=== PATIENT | female | born 1965 | race Caucasian/White ===

== ENCOUNTER → 2018-02-14 12:58 | Outpatient (CLI) | payer OTHER, SELFPAY ==
--- NOTE | 2018-02-14 | BRBX_PTH ---
PATIENT: PRESTON HALE LOC: [facility] U#:[id number] AGE/SX: 60/F ROOM: RE02/14/[address]: Dr. Tomás Nuñez MD : 1965 BED: DIS: SPEC #: [id number] RECD: 02/14/18 13:32 STATUS: ROME VICKY #: [id number] JONNATHAN: 02/14/18 00:[address]: Tomás Nuñez DEPT: SURGICAL PATHOLOGY RECD BY: Philip Hale Tissues: Left breast, NOS Procedures: Surgery Specimen Level IV HEADER OPERATION: Ultrasound-guided left breast biopsy PRE-OP DIAGNOSIS: Abnormal mammogram TISSUE SUBMITTED: Left breast biopsy ISCHEMIC TIME: 2 minutes MICROSCOPIC DIAGNOSIS Left breast, ultrasound-guided core biopsy: Hyalinized fibroadenoma. Negative for atypia or malignancy. SJ:lindy 02/15/18 COMMENT Correlation with clinical, radiologic findings and appropriate follow up are necessary. MICROSCOPIC DESCRIPTION Slides are reviewed. GROSS DESCRIPTION Received is one container labeled with the patient's name and not further designated. The specimen consists of multiple elongated fragments of banks-yellow fibroadipose tissue that in aggregate measure 2 x 0.5 x 0.1 cm. The entire specimen is submitted in one cassette. / SJ:lindy 02/14/18 TC:1 CPT: 26708
== END ==
PROVIDERS: Family Provider Family Medicine; PCP Family Medicine; Visit Provider Surgery
DX: R92.8 Other abnormal and inconclusive findings on diagnostic imaging of breast (principal)
CPT/HCPCS: 88305

== ENCOUNTER → 2018-08-09 14:01 | Outpatient (CLI) | payer OTHER, SELFPAY ==
--- NOTE | 2018-08-09 14:12 | RAD_ITS ---
STUDY: X-RAY - LEFT HIP REASON FOR EXAM: Female, 53 years old. Chronic left hip pain. TECHNIQUE: 3 views of the hip. COMPARISON: None. FINDINGS: There is generalized osteopenia. The frontal view of the pelvis shows osteoarthritic changes of both hips, left greater than right. There is near complete loss of articular cartilage of the superior articular space of the left hip with marked osteophyte formation and subchondral cyst formation. There is mild osteoarthrosis of the symphysis pubis and SI joints. There are phleboliths in the pelvis. RAD/HIP, UNI W/ Pelvis 2-3 Views IMPRESSION: Osteopenia with osteoarthritic changes, left greater than right, as outlined above. Electronically Signed: Riky Rondon MD at 16:39 EST , Service support ,
== END ==
PROVIDERS: Family Provider Family Medicine; PCP Family Medicine; Referring Provider Family Medicine; Visit Provider Family Medicine
DX: M85.88 Other specified disorders of bone density and structure, other site (principal); M16.0 Bilateral primary osteoarthritis of hip
CPT/HCPCS: 73502

== ENCOUNTER → 2018-09-03 09:54 | Outpatient (CLI) | payer OTHER, SELFPAY ==
--- NOTE | 2018-09-03 10:03 | BD_ITS ---
STUDY: DUAL ENERGY X-RAY ABSORPTIOMETRY / DXA REASON FOR EXAM: Female, 53 years old. The patient is postmenopausal. Loss of height. TECHNIQUE: Bone Mineral Density (BMD) measurements of lumbar spine and bilateral hips were obtained. COMPARISON: None. FINDINGS: Lumbar Spine (L1-L4): g/cm2 (1.690) / T-score (4.1) / Z-score (4.6) Findings are suggestive of normal bone density with a low fracture risk. Left Femur Total: g/cm2 (1.085) / T-score (0.7) / Z-score (1.1) Left Femoral Neck: g/cm2 (1.287) / T-score (1.8) / Z-score (2.6) Right Femur Total: g/cm2 (1.004) / T-score (0.0) / Z-score (0.5) Right Femoral Neck: g/cm2 (1.02) / T-score (-0.1) / Z-score (0.8) BD/Dexa Bone Density Study IMPRESSION: The patient is considered normal as outlined below according to World [place] Organization (WHO) criteria with a low fracture risk. Reference Information: The T-score is the number of standard deviations above or below the standard which is normal for young adults at their peak bone mineral density. The World Health Organization (WHO) interprets the T-scores as follows: Above -1 Normal bone density Between -1 and -2.5 Osteopenia Equal to / or below -2.5 Osteoporosis As a practical clinical guideline, osteopenia may be graded as follows: Mild -1 through -1.5 Moderate -1.6 through -2.0 Severe -2.1 through -2.4 The Z-score is the number of standard deviations above or below age-matched controls. A Z-score of less than -1.5 would be considered abnormal. References: 1. NIH Osteoporosis and Related Bone Diseases http://www.osteo.org 2. International Society for Clinical Densitometry http://www.iscd.org 3. National Osteoporosis Foundation http://www.nof.org Electronically Signed: Reggie Spicer MD at 15:30 EST Tel [phone], Service support ,
== END ==
PROVIDERS: Family Provider Family Medicine; PCP Family Medicine; Visit Provider Family Medicine
DX: M85.80 Other specified disorders of bone density and structure, unspecified site (principal); Z78.0 Asymptomatic menopausal state
CPT/HCPCS: 77080

== ENCOUNTER → 2018-09-19 06:24 | Outpatient (CLI) | payer OTHER, SELFPAY ==
[2018-09-19 09:06] LABS: ALB/GLOB Ratio 1.1 RATIO (0.9-2.4); Albumin, Serum 3.8 g/dL (3.2-5.0); BUN 18 mg/dL (7-18); BUN/Creat Ratio 22.9 RATIO (10-20); Calcium,Total 8.7 mg/dL (8.5-10.1); Creatinine, Serum 0.78 mg/dL (0.55-1.02); EST Glomerular Filtration Rate 82 mL/min (>60); Est Glom Filt Rate - Afr Amer 99 mL/min (>60); Globulin 3.4 g/dL (2.2-4.2); Glucose 84 mg/dL (74-106); Protein, Total 7.2 g/dL (6.4-8.2)
[2018-09-19 09:07] LABS: AST(SGOT) 27 U/L (15-37); Alanine Aminotransfer ALT/SGPT 30 U/L (13-56); Alkaline Phosphatase 53 U/L (45-117); Anion Gap 7 (5-15); Chloride 107 mmol/L (98-107); Cholesterol 203 mg/dL (200); High Density Lipoprotein 86 mg/dL; Sodium Level 141 mmol/L (136-145); Triglycerides 101 mg/dL; Very Low Density Lipoprotein 20 mg/dL (5-40)
== END ==
PROVIDERS: Family Provider Family Medicine; PCP Family Medicine; Referring Provider Family Medicine; Visit Provider Family Medicine
DX: Z00.01 Encounter for general adult medical examination with abnormal findings (principal)
CPT/HCPCS: 36415; 80053; 80061

== ENCOUNTER → 2018-10-11 16:21 | Outpatient (CLI) | payer OTHER, SELFPAY ==
--- NOTE | 2018-10-11 16:43 | RAD_ITS ---
STUDY: X-RAY - LEFT KNEE REASON FOR EXAM: Female, 53 years old. Left knee pain TECHNIQUE: 4 view(s) of the knee. COMPARISON: None. FINDINGS: Normal visualized distal femur. Normal visualized proximal tibia and fibula. Normal proximal tibiofibular articulation. Normal medial femorotibial compartment. Normal lateral femorotibial compartment. Normal patellofemoral articulation. There is no demonstrated joint effusion. The soft tissue structures are unremarkable. RAD/Knee 4 or More Views IMPRESSION: 1. Normal x-ray examination of the knee. Electronically Signed: Douglas Shabazz MD at 17:27 EST , Service support ,
--- OUTSIDE RECORDS SUMMARY | 2018-12-16 07:57 | XMS RPT_ITS ---
:1965 Author Organization OHIP Care Team Providers Name Role Phone TOMÁS SMITH Referring Unavailable TOMÁS SMITH Referring Unavailable TOMÁS SMITH Attending Unavailable RYLIE MICHEL Referring Unavailable TOMÁS SMITH Referring Unavailable Miedel, Teresa Attending Unavailable Miedel, Teresa Primary Care Unavailable Char Antonio Attending Unavailable Miedel, Teresa Referring Unavailable Char Antonio Attending Unavailable Miedel, Teresa Primary Care Unavailable Miedel, Teresa Attending Unavailable Miedel, Teresa Referring Unavailable Miedel, Teresa Primary Care Unavailable Miedel, Teresa Attending Unavailable Miedel, Teresa Referring Unavailable Miedel, Teresa Primary Care Unavailable Markel, Teresa Attending Unavailable Miedel, Teresa Referring Unavailable Miedel, Teresa Primary Care Unavailable Tomás Smith Attending Unavailable Joaquin, Tomás Referring Unavailable Leilani Lantigua Primary Care Unavailable Teresa Stephens Attending Unavailable Kat Teresa Referring Unavailable Kat Teresa Primary Care Unavailable PROBLEMS PROBLEMS DATE TYPE CONDITION / CODE ATTENDING STATUS SOURCE 10/18/2018 Unknown 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, Active [place] Unilateral primary [facility] osteoarthritis, Hospital left hip / Repository M16.12(ICD-10) 10/18/2018 Unknown M70.62 - Chicorelli, Active [place] Trochanteric [facility] bursitis, left hip Hospital / M70.62(ICD-10) Repository 10/18/2018 Unknown M76.32 - Chicorelli, Active [place] Iliotibial band [facility] syndrome, left leg Hospital / M76.32(ICD-10) Repository 10/11/2018 Unknown M25.562 - Pain in Teresa Stephens Active [place] left knee / Community M25.562(ICD-10) Hospital Repository 09/19/2018 Unknown Z00.01 - Encounter Teresa Stephens Active [place] for general [facility] examination with Repository abnormal findings / Z00.01(ICD-10) 04/30/2018 Unknown R92.8 - Other [place] abnormal and [facility] inconclusive Hospital findings on Repository diagnostic imaging of breast / R92.8(ICD-10) 01/30/2018 Active Other abnormal and NA Active [facility] inconclusive [facility] [place] findings on Repository diagnostic imaging of breast / R92.8(ICD-10) PROCEDURES PROCEDURES No Procedure Records FoundRESULTS RESULTS PROGRESS Observed: 10/16/2018 Status: COMPLETED Source: [place] 8:28 AM [facility] REPOSITORY HNO ID: [id number] Author: Erendira Pimentel Rt Service: (none) Author Type: (none) Type: Progress Notes Filed: 10/16/2018 8:28 AM Note Text: Radiology Service Progress Note PATIENT NAME: Maria Hale DATE OF SERVICE: October 16, 2018 TIME: 8:28 AM PATIENT IDENTITY VERIFICATION COMPLETED USING TWO (2) METHODS: Patient confirmed name verbally and Date of . PATIENT GENDER DATA: Female. status: : No status: NO. PATIENT RELEVANT IMPLANT DATA REVIEWED: Not Applicable RADIOLOGY DEPARTMENT: [facility] diagnostic mammogram PERIPHERAL IV DATA: Not applicable SIGNED BY: Erendira Pimentel Rt October 16, 2018 8:28 AM CNCO Observed: 10/16/2018 Status: COMPLETED Source: [place] 8:21 AM [facility] REPOSITORY HNO ID: [id number] Author: Mammography Coordinator Service: (none) Author Type: Physician Type: Letter Filed: 10/17/2018 11:31 PM Note Text: October 16, 2018 PID: [id number] Maria Echavarriaward [address] [address] Dear Ms. Hale, We are pleased to inform you that the results of your recent breast imaging exam on 10/16/2018 are normal and we recommend that you return to your annual screening Mammography schedule. Your mammogram demonstrates that you have dense breast tissue, which could hide abnormalities. Dense breast tissue, in and of itself, is a relatively common condition. Therefore, this information is not provided to cause undue concern; rather, it is to raise your awareness and promote discussion with your health care provider regarding the presence of dense breast tissue in addition to other risk factors. Early detection of cancer is very important. We also understand recommendations regarding breast cancer screening are controversial. Please discuss with your primary care provider which strategy is best for you and whether a mammogram is right for you. Your imaging studies and report will be kept on file at [facility] as part of your permanent medical record and are available for your continuing care. Thank you for allowing us to help in meeting your health care needs. Sincerely, Dr. Beltre Interpreting Radiologist [facility] (Return to Annual Mammogram schedule) [facility]IC [facility] Observed: 10/16/2018 Status: F Source: [place] 8:15 AM [facility] REPOSITORY * * *Final Report* * * DATE OF EXAM: Oct 16 2018 8:15AM WRW [id number] - [facility] DIAG[facility]IC [facility] / PROCEDURE REASON: Abnormal finding on breast imaging * * * * Physician Interpretation * * * * RESULT: #[id number] - [facility] DIAG[facility]IC [facility] UNILATERAL LEFT DIGITAL DIAGNOSTIC MAMMOGRAM WITH CAD: 10/16/2018 HISTORY: Abnormal Finding On Breast Imaging. RESULT: TECHNIQUE: The study was acquired using full field digital technology and interpreted from soft copy. Current study was also evaluated with a Computer Aided Detection (CAD). Comparison is made to exams dated: 01/30/2018 mammogram, 02/28/2017 mammogram, 08/29/2016 mammogram - [facility], and 08/22/2016 mammogram - [facility]. The tissue of left breast is heterogeneously dense. This may lower the sensitivity of mammography. There is a new biopsy clip in the left breast. No significant masses, calcifications, or other findings are seen in the breast. IMPRESSION: There is no mammographic evidence of malignancy. Return to annual mammogram screening schedule is recommended. Meg wilson/alena:10/16/2018 08:21:43 Fund Controller(s): RT Shahana(R)(M), [facility] letter sent: Return to Annual Mammogram BI-RADS: 1 Negative Multiple national specialty organizations have released breast cancer screening guidelines for women at average risk for developing breast cancer - guidelines that are based on both evidence and opinion, yet differ on when to start and how often to screen for breast cancer. With representation from Breast Imaging, Internal Medicine, Women's Health, Family Medicine, and Medical/Surgical Oncology, the [facility] has carefully reviewed the data and reached the following consensus: 1) All women should engage in shared decision-making with their providers to decide when to start and how often to screen; 2) All women should have the opportunity to start screening mammography at age 40; 3) For women ages 45-55, we recommend annual screening mammograms; 4) For women ages 55 and over, we support both the transition from an annual to a biennial interval if this aligns more with patient's values and preferences, or continuation with annual screening; 5) All women should discuss with their providers when to stop screening mammograms. Lead Sharepoint Developer: Alena Transcribe Date/Time: Oct 16 2018 8:02A Dictated by: MEG BELTRE MD This examination was interpreted and the report reviewed and electronically signed by: MEG BELTER MD on Oct 16 2018 8:21AM EST [id number] KNEE 4 OR MORE Observed: 10/11/2018 Status: F Source: [place] VIEWS 4:43 PM [facility] REPOSITORY [facility] Imaging Services [address] [place] [id number] Knee 4 or More Views MR#: [id number] Acct: [id number] Name: MARIA HALE Rep #: [id number] : 1965 F 53 From: Douglas Shabazz MD PCP: Teresa Stephens MD Status: REG CLI Study: Knee 4 or More Views Date of Exam: 10/11/18 Exam# [id number] Ordering Dr: Teresa Stephens MD STUDY: X-RAY - LEFT KNEE REASON FOR EXAM: Female, 53 years old. Left knee pain TECHNIQUE: 4 view(s) of the knee. COMPARISON: None. FINDINGS: Normal visualized distal femur. Normal visualized proximal tibia and fibula. Normal proximal tibiofibular articulation. Normal medial femorotibial compartment. Normal lateral femorotibial compartment. Normal patellofemoral articulation. There is no demonstrated joint effusion. The soft tissue structures are unremarkable. RAD/Knee 4 or More Views IMPRESSION: 1. Normal x-ray examination of the knee. Electronically Signed: Douglas Shabazz MD at 17:27 EST , Service support , CC: Teresa Stephens MD Lead Sharepoint Developer: Signed INITAL EVALUATION (1) Observed: 09/26/2018 Status: F Source: [place] - PT 6:50 PM [facility] REPOSITORY [facility] Physical Therapy Health[address] [place] [address] / REHABILITATION SERVICES INITIAL EVALUATION MR#: [id number] Acct: [id number] Name: MARIA HALE Rep #: [id number] : 1965 53 From: Eric Tilley PT, ATC Referring Dr.: Char Chicorelli, DO Status: REG RCR [facility] S[facility] [facility] Patient's Visit Information MARIA HALE is a 53 year old F referred to Physical Therapy by Char Antonio DO with a diagnosis of L hip pain. Date of Evaluation: 09/26/18 Physical Therapist: Eric Tilley PT, ATC - Visit Plan Frequency: 2x /Week Duration: 2 Weeks Plan: L LE stretching and strengthening, core stab ex's, bike, and HEP - Subjective Findings: Pt reports her L hip has been sore for 6 mos. Pt reports her pain had an insidious onset in nature, but notes she did fall 20 years ago and notes this may have had something to do with it. Pt reports she has always been a runner, so her knees are shot as well. Pt reports she is not able to run at this time secondary to pain. Pt would like to be able to go back to running one day to help relieve her stress. No tingling or numbness in L LE at this time. Pt reports sleep difficulty secondary to pain. Pt reports she feels more pain when she sits around and does nothing. 2/10 at rest (a dull ache), 8/10 at worst (stops my in my tracks) - Pain L hip Pain Intensity (Out of 10): 2 Pain Intensity Range: 8 - Objective Neuro: B LE sensation is WNL to light touch. B patellar reflex= 2+/3. Palpation: No pain or obvious deformity around greater trochanter of L hip. MMT: L hip IR/ER is 4/5. All other B LE measurements 5/5 throughout. ROM: B LE's are WNL at this time. Special testing: Pt has a 1/4 leg length discrepancy with L being shorter than R LE. Pos 90/90 test. limited flexibility throughout - Goals Goal 1:: I with HEP in 4 visits - Rehabilitation Potential Physical Therapy Diagnosis: L hip pain, weakness, and limited flexibility secondary to debility of L hip Rehabilitation Potential: Good - Anticipated Interventions Patient/Client Instruction: Educate patient on: Condition, Plan of Care For the Purpose of:: To improve self management Therapeutic Exercise to Include: Strength training, Endurance training, Balance training, Flexibilty training, Active ROM, Dynamic Lumbar Stabilization For the Purpose of:: To decrease pain, To increase ROM, To improve muscle performance and motor function Cryotherapy (ice pack, ice massage): Yes For the Purpose of:: To decrease pain Thank you for the opportunity to evaluate your patient. For Medicare and Medicare HMO plans, please review the plan of care and approve it. It will need to be FAXED BACK to us at [phone] for Medicare purposes. For Medicare only, by signing this I certify the plan of care. Please let me know if there are questions or concerns regarding this plan of care. Physician Signature: Date: <Electronically signed by Eric Tilley PT, ATC> 09/26/18 1850 CC: Char Antonio DO; Teresa Stephens MD [facility] Signed COMPREHENSIVE METABOLIC Collected: 09/19/2018 Status: F Source: [place]ACI[place]A [place] 6:28 AM [facility] REPOSITORY TYPE CODE TESTS RESULT OUT OF RANGE REFERENCE UNITS LAB L501.0100 74-106 mg/dL Normal GLU 84 Result Comment: Please note revised GLUCOSE reference range effective 2017. LAB L501.1000 7-18 mg/dL Normal BUN 18 LAB L501.1100 0.55-1.02 mg/dL Normal CREAT,SERUM 0.78 Result Comment: The validity of the calculated GFR AND GFRAA in patients over 70 years has not been determined. Clinical correlation is essential. LAB L501.1110 >60 mL/min Normal EST GFR 82 Result Comment: Non- GFR Calc LAB L501.1115 >60 mL/min Normal EST GFR - AA 99 Result Comment: GFR Calc LAB L501.1300 10-20 RATIO High BUN/CRE 22.9 LAB L501.1500 6.4-8.2 g/dL T Normal PROT 7.2 LAB L501.1800 3.2-5.0 g/dL Normal ALB 3.8 LAB L501.1950 2.2-4.2 g/dL Normal GLOB 3.4 LAB L501.2000 0.9-2.4 RATIO Normal A/G 1.1 LAB L501.2200 8.5-10.1 mg/dL CA Normal 8.7 LAB L501.4100 15-37 U/L Normal AST 27 LAB L501.4305 45-117 U/L Normal ALK P 53 LAB L501.4405 13-56 U/L Normal ALT 30 LAB L501.4600 0.20-1.00 mg/dL T Normal BILI 0.40 LAB L501.5300 136-145 mmol/L NA Normal 141 LAB L501.5600 3.5-5.1 mmol/L K Normal 4.0 LAB L501.5900 98-107 mmol/L CL Normal 107 LAB L501.6100 21.0-32.0 mmol/L Normal CO2 27.0 LAB L501.6200 5-15 Normal GAP 7 Performed By: #### L500.4050, L500.4100 #### [facility] [address] [place], [place], [id number] LIPID PROFILE Collected: 09/19/2018 Status: F Source: [place] 6:28 AM [facility] REPOSITORY TYPE CODE TESTS RESULT OUT OF RANGE REFERENCE UNITS LAB L501.4900 200 mg/dL High CHOL 203 Result Comment: <200 mg/dL Desirable 200-240 mg/dL Borderline >240 mg/dL High Risk LAB L501.5000 mg/dL Normal TRIG 101 Result Comment: The drugs N-Acetylcysteine and Metamizole may falsely depress this assay. Serum Triglycerides Reference Interval Normal <150 mg/dL Borderline high 150 - 199 mg/dL High 200 - 499 mg/dL Very High > or = 500 mg/dL LAB L501.6400 mg/dL Normal HDL 86 Result Comment: The drugs N-Acetylcysteine and Metamizole may falsely depress this assay. Reference Range HDL <40 mg/dL Low HDL Cholesterol HDL >or= 60 mg/dL High HDL Cholesterol LAB L501.6500 0-130 mg/dL Normal LDL 97 LAB L501.6600 5-40 mg/dL Normal VLDL 20 Performed By: #### L500.4050, L500.4100 #### [facility] [address] [place], [place], [id number] ORTHOPEDIC VISIT Observed: 09/12/2018 Status: F Source: [place] RE[place] 3:18 PM [facility] REPOSITORY [facility] [address] [place] [address] OFFICE VISIT Date of Service: 09/12/18 MR#: [id number] Acct: [id number] Name: MARIA HALE Rep #: [id number] : 1965 Provider: Char Antonio DO Age/Sex: 53/F Location[place] [facility] [place] [place] Status: Signed Intake Intake Visit Reasons: LEFT HIP Is patient in pain?: Yes Allergies No Known Allergies Allergy (Unverified 09/12/18 14:37) Medications cetirizine 10 mg capsule 10 mg PO DAILY 09/12/18 [History Confirmed 09/12/18] multivitamin tablet 1 tab PO DAILY 09/12/18 [History Confirmed 09/12/18] triamcinolone acetonide 55 mcg nasal spray aerosol 1 spray INTRANASAL DAILY 09/12/18 [History Confirmed 09/12/18] PFSH Family History Mother Diabetes Hypertension Father Cancer Social History Smoking Status: Former smoker HPI LEFT HIP: Details: MARIA HALE is a 53 year old F here today for left hip pain. Patient states that she has had left hip pain for about a year off and on. Patient denies any known injury other than a fall about 24 years ago. She has pain over her lateral hip and down her lateral thigh. Patient has increased pain with exercising. She notes that she had xrays which are here for review. Patient denies any MRI or injections or physical therapy. Denies numbness, tingling or other associated symptoms. ROS Const Reports system reviewed and no additional complaints, except as docu Eyes Reports system reviewed and no additional complaints, except as docu ENT Reports system reviewed and no additional complaints, except as docu Card Reports system reviewed and no additional complaints, except as docu Resp Reports system reviewed and no additional complaints, except as docu GI Reports system reviewed and no additional complaints, except as docu Reports system reviewed and no additional complaints, except as docu Musc Reports joint pain Skin/Breast Reports system reviewed and no additional complaints, except as docu Neuro Yes system reviewed and no additional complaints, except as docu Psych Reports system reviewed and no additional complaints, except as docu Endo Reports system reviewed and no additional complaints, except as docu Ortho Exam Left Hip Skin/Wound: Yes CDI Contralateral Normal: Yes Hip: Present TTP Greater Troch internal rotation @90 degree flexion: 20 degrees Homans Sign: No Assessment AND Plan 1. Osteoarthritis of left hip, unspecified osteoarthritis type M16.12 Plan Personally reviewed the patient's medical history, medications, surgeries and recent exams if available. X-rays were reviewed. There is no obvious fracture, dislocation, or lucency noted, she does have OA with osteophytes noted. Educated on the anatomy of the hip and explained that she has moderate to severe OA with goatsbeard noted as well as shortening. 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 Discussed referral to Dr Myers. Reviewed the need to try some strengthening, have PT do leg length and eval for orthotic. Follow up with Dr Myers when needed or sooner if pain, swelling, numbness or associated symptoms, or concerns develop. All questions answered. Patient in agreement of plan. 2. Greater trochanteric bursitis of left hip M70.62 3. Iliotibial band syndrome, left leg M76.32 Coding Level of Care Code Off vis,new,level 3 Diagnoses Osteoarthritis of left hip, unspecified osteoarthritis type M16.12 Osteoarthritis type: unspecified Greater trochanteric bursitis of left hip M70.62 Iliotibial band syndrome, left leg M76.32 09/12/18 1518 <Electronically signed by Char Antonio DO> Date Char Antonio DO Cosigner Signature: Date (if applicable) CC: Teresa Stephens MD DEXA BONE DENSITY Observed: 09/03/2018 Status: F Source: [place]CI[place] STUDY 9:57 AM [facility] REPOSITORY [facility] Imaging Services [address] [place] [address] Dexa Bone Density Study MR#: [id number] Acct: [id number] Name: MARIA HALE Rep #: [id number] : 1965 F 53 From: Reggie Spicer MD PCP: Teresa Stephens MD Status: REG CLI Study: Dexa Bone Density Study Date of Exam: 09/03/18 Exam# [id number] Ordering Dr: Teresa Stephens MD STUDY: DUAL ENERGY X-RAY ABSORPTIOMETRY / DXA REASON FOR EXAM: Female, 53 years old. The patient is postmenopausal. Loss of height. TECHNIQUE: Bone Mineral Density (BMD) measurements of lumbar spine and bilateral hips were obtained. COMPARISON: None. FINDINGS: Lumbar Spine (L1-L4): g/cm2 (1.690) / T-score (4.1) / Z-score (4.6) Findings are suggestive of normal bone density with a low fracture risk. Left Femur Total: g/cm2 (1.085) / T-score (0.7) / Z-score (1.1) Left Femoral Neck: g/cm2 (1.287) / T-score (1.8) / Z- score (2.6) Right Femur Total: g/cm2 (1.004) / T-score (0.0) / Z- score (0.5) Right Femoral Neck: g/cm2 (1.02) / T-score (-0.1) / Z- score (0.8) BD/Dexa Bone Density Study IMPRESSION: The patient is considered normal as outlined below according to World Jayedn Organization (WHO) criteria with a low fracture risk. Reference Information: The T-score is the number of standard deviations above or below the standard which is normal for young adults at their peak bone mineral density. The World Health Organization (WHO) interprets the T-scores as follows: Above -1 Normal bone density Between -1 and -2.5 Osteopenia Equal to / or below -2.5 Osteoporosis As a practical clinical guideline, osteopenia may be graded as follows: Mild -1 through -1.5 Moderate -1.6 through -2.0 Severe -2.1 through -2.4 The Z-score is the number of standard deviations above or below age-matched controls. A Z-score of less than -1.5 would be considered abnormal. References: 1. NIH Osteoporosis and Related Bone Diseases http://www.osteo.org 2. International Society for Clinical Densitometry http://www.iscd.org 3. National Osteoporosis Foundation http://www.nof.org Electronically Signed: Reggie Spicer MD at 15:30 EST Tel [phone], Service support , CC: Teresa Stephens MD Lead Sharepoint Developer: Signed CNPN Observed: 09/03/2018 Status: COMPLETED Source: [place] 12:00 AM [facility] REPOSITORY Telephone (GENSWS) MARIA HALE ([id number]) 1965 F Date Time Provider Department 09/03/18 TOMÁS SMITHSWS During your visit today, we recorded the following information about you: Johanna Ang Psr 09/03/2018 9:[address] orders so we may schedule 6 month DX mammography/Ultrasound Left Breast and OV with DR Smith. Please route back to [place] so we may return call to schedule. Colton Jennings LPN 09/03/2018 10:15 AM Signed orders pended- please file-Please do not close encounter Allergies As of Date: 09/03/2018 (No Known Allergies) Date Reviewed: 02/17/2018 Reviewed by: Tomás Smith - Fully Assessed Reason for Visit: Orders [681] Primary Visit Diagnosis:Abnormal finding on breast imaging [R92.8] Order(s):[facility] [[id number]] Order #: [id number] FUTURE BREAST LTD LT [[id number]] Order #: [id number] FUTURE Prescriptions as of 09/03/2018 Sig: CETIRIZINE 10 MG TABLET Take 1 tablet by mouth once d* FLUTICASONE 50 MCG/ACTUATION * Use 2 Sprays in each nostril * MULTIVITAMIN CHEWABLE TABLET Take 1 tablet by mouth once d* PSEUDOEPHEDRINE 60 MG TABLET Take 1 tablet by mouth every * Problem List As Of Date 09/03/2018 Noted Resolved Lump or mass in breast [N63.0] INVALID FOR* Abnormal mammogram, unspecified [R92.8] INVALID FOR* Benign essential HTN [I10] INVALID FOR* More... Tinnitus [H93.19] INVALID FOR* Encounter Status:Closed by TOMÁS SMITH MD on 09/03/18 HIP, UNI W/ PELVIS Observed: 08/09/2018 Status: F Source: [place] 2-3 VIEWS 2:13 PM [facility] REPOSITORY [facility] Imaging Services [address] [place] [address] HIP, UNI W/ Pelvis 2-3 Views MR#: [id number] Acct: [id number] Name: MARIA HALE Rep #: [id number] : 1965 F 53 From: Luisito Rondon MD PCP: Teresa Stephens MD Status: REG CLI Study: HIP, UNI W/ Pelvis 2-3 Views Date of Exam: 08/09/18 Exam# [id number] Ordering Dr: Teresa Stephens MD STUDY: X-RAY - LEFT HIP REASON FOR EXAM: Female, 53 years old. Chronic left hip pain. TECHNIQUE: 3 views of the hip. COMPARISON: None. FINDINGS: There is generalized osteopenia. The frontal view of the pelvis shows osteoarthritic changes of both hips, left greater than right. There is near complete loss of articular cartilage of the superior articular space of the left hip with marked osteophyte formation and subchondral cyst formation. There is mild osteoarthrosis of the symphysis pubis and SI joints. There are phleboliths in the pelvis. RAD/HIP, UNI W/ Pelvis 2-3 Views IMPRESSION: Osteopenia with osteoarthritic changes, left greater than right, as outlined above. Electronically Signed: Luisito Rondon MD at 16:39 EST , Service support , CC: Teresa Stephens MD Lead Sharepoint Developer: Signed CNCO Observed: 03/13/2018 Status: COMPLETED Source: [place] 10:44 AM [facility] REPOSITORY HNO ID: [id number] Author: Mammography Coordinator Service: (none) Author Type: Physician Type: Letter Filed: 03/18/2018 11:31 PM Note Text: January 30, 2018 PID: [id number] Maria Hale [address] [place] [address] Dear Ms. Hale, Your recent breast imaging exam on 01/30/2018 showed an abnormal area. At this time we recommend further evaluation. This does not necessarily mean that there is a serious problem in your breast, but it should not be ignored. Please contact your physician as soon as possible to discuss the results of this exam and decide what the next steps in your medical care should be. If you have already been notified of these findings, please disregard this letter. Thank you for allowing us to help in meeting your health care needs. Sincerely, Dr. Beltre Interpreting Radiologist [facility] (Abnormal) CNCO Observed: 03/13/2018 Status: COMPLETED Source: [place] 10:44 AM [facility] REPOSITORY HNO ID: [id number] Author: Mammography Coordinator Service: (none) Author Type: Physician Type: Letter Filed: 03/18/2018 11:31 PM Note Text: January 30, 2018 PID: [id number] Maria Hale [address] [place] [address] Dear Ms. Hale, Your recent breast imaging exam on 01/30/2018 showed an abnormal area. At this time we recommend further evaluation. This does not necessarily mean that there is a serious problem in your breast, but it should not be ignored. Please contact your physician as soon as possible to discuss the results of this exam and decide what the next steps in your medical care should be. If you have already been notified of these findings, please disregard this letter. Thank you for allowing us to help in meeting your health care needs. Sincerely, Dr. Beltre Interpreting Radiologist [facility] (Abnormal) PROGRESS Observed: 02/17/2018 Status: COMPLETED Source: [place] 11:53 PM [facility] REPOSITORY O ID: [id number] Author: Tomás Smith Service: (none) Author Type: Physician Type: Progress Notes Filed: 02/18/2018 9:48 AM Note Text: HISTORY AND PHYSICAL - BREAST COMPLAINT Maria Hale 1965 REFERRING PHYSICIAN: Rylie Michel MD CHIEF COMPLAINT: Persistent left breast abnormality HPI: The patient is a 53 year old female with a complaint of an abnormal mammogram. The patient had a mammogram with ultrasound on January 30, 2018 which demonstrated: IMPRESSION: SUSPICIOUS FINDING - BIOPSY SHOULD BE CONSIDERED - FOLLOW-UP RECOMMENDED The 0.7 cm x 0.4 cm x 0.7 cm oval mass in the right breast is suspicious of malignancy. ?An ultrasound guided biopsy is recommended. The patient denies a history of breast masses. She does perform a self breast exam routinely. She notes no skin changes. She denies nipple discharge. She notes no axillary masses. She notes no family history of breast problems. She notes no significant breast trauma or breast difficulties in the past. The patient had a mammogram with ultrasound on February 28, 2017 which demonstrated: ? IMPRESSION: SUSPICIOUS OF MALIGNANCY - FOLLOW-UP RECOMMENDED The 0.7 cm x 0.4 cm x 0.6 cm oval mass in the left breast is suspicious of malignancy. ?An ultrasound guided biopsy is recommended. Meg wilson/alena:02/28/2017 16:10:23 copy to: BARNEY SALDANA, ph: [phone] Fund Controller: Paula CASSIDY(R)(M), [facility] letter sent: Abnormal ? Mammogram BI-RADS: 4 Suspicious abnormality Ultrasound BI-RADS: 4 Suspicious abnormality Lead Sharepoint Developer: Alena Transcribe Date/Time: Feb ?3:45P Dictated by : MEG BELTRE MD This examination was interpreted and the report reviewed and electronically signed by: MEG BELTRE MD on Feb ?4:10PM ?EST Results-Findings * * *Final Report* * * DATE OF EXAM: Feb ?3:59PM ? [facility] ? 0155 ?- ?US BREAST INCL AXILLA LTD ?- LEFT / PROCEDURE REASON: 6 month followup left breast abnormal mamogram ?? ? * * * * Physician Interpretation * * * * ?#[id number] - SARA DIG DIAG CAD UNI UNILATERAL LEFT DIGITAL DIAGNOSTIC MAMMOGRAM WITH CAD: 02/28/2017 HISTORY: 6 Month Followup Left Breast ? ? Abnormal Mamogram. RESULT: TECHNIQUE: ?The study was acquired using full field digital technology and interpreted from soft copy. Current study was also evaluated with a Computer Aided Detection (CAD). Comparison is made to exams dated: ?08/29/2016 mammogram - [facility] and 08/22/2016 mammogram - [facility]. The tissue of the left breast is heterogeneously dense. This may lower the sensitivity of mammography. There is no mammographically visible abnormality. Biopsy based on the ultrasound is advised. No significant masses, calcifications, or other findings are seen in the breast. SUSPICIOUS OF MALIGNANCY #[id number] - US BREAST INCL AXILLA LTD ULTRASOUND OF LEFT BREAST: 02/28/2017 RESULT: Comparison is made to exams dated: ?08/29/2016 mammogram - [facility] and 08/22/2016 mammogram - [facility]. Real-time ultrasound of the left breast was performed. There is a 0.7 cm x 0.4 cm x 0.6 cm oval mass with a circumscribed margin in the left breast at 9 o'clock middle depth 1 cm from the nipple. ?This oval mass is hypoechoic with internal echoes. ?This abnormality is not significantly changed. ? ? ? . The patient denies a history of breast masses. She does perform a self breast exam routinely. She notes no skin changes. She denies nipple discharge. She notes no axillary masses. She notes no family history of breast problems. She notes no significant breast trauma or breast difficulties in the past. ? The patient has had 3 pregnancies. Her last mammogram was 1 year previously. Her last menstrual period was November 2016. Her first menstrual period was at age [age]. ? The patient is being seen by me today at the request of Dr. RYLIE MICHEL MD for my opinion and advice regarding left breast abnormality. PAST MEDICAL HISTORY Diagnosis Date - NEGATIVE MEDICAL HISTORY PAST SURGICAL HISTORY Procedure Laterality Date - LIGATE FALLOPIAN TUBE 2003 Tubal ligation Current Outpatient Prescriptions: pseudoephedrine (SUDAFED) 60 mg tablet Take 1 tablet by mouth every 6 hours as needed for Cold/Allergy Symptoms. Disp: 30 tablet Rfl: 2 cetirizine (ALL DAY ALLERGY) 10 mg tablet Take 1 tablet by mouth once daily. Disp: 30 tablet Rfl: 5 fluticasone (FLONASE) 50 mcg/actuation nasal spray Use 2 Sprays in each nostril once daily. Rinse mouth after use. Disp: 1 Bottle Rfl: 11 Multivitamins (CHEWABLE MULTI VITAMIN) Chew Take 1 tablet by mouth once daily. CHEW TAB BEFORE SWALLOWING Disp: Rfl: 0 No current facility-administered medications for this visit. ALLERGIES: Patient has no known allergies. PERSONAL HISTORY: Social History Marital status: Spouse name: Years of education: Number of children: 3 Occupational History Occupation Employer Comment [employer] Social History Main Topics Smoking status: Former Smoker Packs/day: 0.00 Years: 0.00 Smokeless tobacco: Never Used Alcohol use: Yes Comment: rarely Drug use: No Sexual activity: Yes Partners with: Male control/protection: Tubal Ligation FAMILY HISTORY: FAMILY HISTORY Problem Relation Age of Onset - Diabetes Mother - Cancer Father lung - Stroke Father REVIEW OF SYMPTOMS: The review of systems data was entered by the nurse and reviewed by me Nursing Notes: Jacquelyn Araya LPN 02/14/2018 9:04 AM Signed INFORMED CONSENT Maria Hale Medical Record: [id number] Procedure:us guided left breast biopsy The risks, benefits and anticipated outcomes of the procedure, the risks and benefits of the alternatives to the procedure and the roles and tasks of the personnel to be involved were discussed with the patient and the patient consents to the procedure and agrees to proceed. I verify that I personally obtained Maria Hale's consent. Jacquelyn Araya LPN February 14, 2018 8:59 AM Dept of GENERAL SURGERY UNIVERSAL PROTOCOL / SAFETY CHECKLIST Procedure to be performed: us guided left breast biopsy Sign in Communication: Completed Time Out: Team Confirms the Correct Patient, Correct Procedure, Correct Site and Site Marking, Correct Position (if applicable), Prep and Dry Time (if applicable). Time: 859 am Affirmation of Time Out: YES Sign Out Discussion: Completed Jacquelyn Araya LPN PHYSICAL EXAMINATION: General: The patient is 53 year old female, well nourished, well hydrated in no acute distress. The patient is oriented to time, place, and person. VITALS: Blood pressure 148/82, pulse 68. There is no height or weight on file to calculate BMI. HEENT: Normal cephalic, ataumatic, pupils are equally round, sclera are anicteric, mucous membranes are moist, oropharynx is clear. Neck has no masses, asymmetry or lymphadenopathy. Thyroid is unremarkable. Respiratory: Clear to auscultation and percussion. Normal respiratory excursion and pattern. Cardiac: Examination is regular rate and rhythm. Abdominal exam: Soft, nontender, with no palpable masses. No hepatosplenomegaly. No palpable hernias. Rectal exam: exam deferred Extremities: no clubbing, cyanosis or edema. No adenopathy. Breast: Visual inspection reveals no retractions, nipple inversion, or skin changes. Palpation of the right breast reveals no dominant or suspicious masses, but multiple benign-feeling nodules. Palpation of the left breast reveals no dominant or suspicious masses, but multiple benign-feeling nodules. Axillary exam demonstrates no suspicious masses in either the left or right axilla. There is no nipple discharge expressed from either the left or right breast. LABORATORY VALUES: As Noted RADIOLOGIC STUDIES: As Noted PROCEDURE: Ultrasound Guided Core Breast Biopsy The risks, benefits and anticipated outcomes of the procedure, the risks and benefits of the alternatives to the procedure, and the roles and tasks of the personnel to be involved, were discussed with the patient, and the patient consents to the procedure and agrees to proceed. After explaining the procedure and consent was obtained,Maria was positioned. The abnormality in the left breast was identified by ultrasound. Lidocaine was injected in to the skin and a small stab incision was made. The bard core biopsy needle was inserted into the stab incision and advanced. Multiple core were obtained with ultrasound demonstrating targeting into the lesion. A marker clip was then placed via ultrasound guidance. Steristrips were applied to the incision. A bandage was applied to the needle site. Maria tolerated the procedure well. Assessment IMPRESSION: Status post ultrasound guided core biopsy - left breast PLAN: The patient is to return for results of her ultrasound guided breast biopsy. If the patient notes bleeding from the biopsy site, she is to place pressure on the site. Discomfort from brusing can be managed with an ice pack or non steroidal analegics. Diagnoses: (R92.8) Abnormal finding on breast imaging (primary encounter diagnosis) My findings have been communicated to Dr. RYLIE MICHEL MD via shared medical record. This note will be forwarded to Dr. RYLIE MICHEL MD. Return to Clinic: The patient is instructed to follow-up with me in one week. Tomás Smith MD CNOV Observed: 02/14/2018 Status: COMPLETED Source: [place] 8:00 AM [facility] REPOSITORY Office Visit ([facility]) MARIA HALE ([id number]) 1965 F Date Time Provider Department 02/14/18 8:00 AM TOMÁS SMITH [facility] During your visit today, we recorded the following information about you: Pulse Blood pressure 68/minute 148/82 Jacquelyn Araya LPN 02/14/2018 9:04 AM Signed INFORMED CONSENT Maria Hale Medical Record: [id number] Procedure:us guided left breast biopsy The risks, benefits and anticipated outcomes of the procedure, the risks and benefits of the alternatives to the procedure and the roles and tasks of the personnel to be involved were discussed with the patient and the patient consents to the procedure and agrees to proceed. I verify that I personally obtained Maria Hale's consent. Jacquelyn Araya LPN February 14, 2018 8:59 AM Dept of GENERAL SURGERY UNIVERSAL PROTOCOL / SAFETY CHECKLIST Procedure to be performed: us guided left breast biopsy Sign in Communication: Completed Time Out: Team Confirms the Correct Patient, Correct Procedure, Correct Site and Site Marking, Correct Position (if applicable), Prep and Dry Time (if applicable). Time: 859 am Affirmation of Time Out: YES Sign Out Discussion: Completed Jacquelyn Araya LPN 02/14/2018 9:04 AM Signed The following instructions are important for you related to your office visit today with the [facility] General Surgeons. Instructions After OFFICE BASED BREAST BIOPSY Please do not take aspirin or other blood thinners for the next few days. After the procedure, Steri-Strips and a dressing will be placed on your small incision. The dressing may be removed in two to three days after the procedure. The Steri-Strips should be left in place until they fall off. If you have bleeding from the biopsy site, hold pressure with a clean gauze. If the bleeding continues, contact our office immediately. I recommend taking Advil or Tylenol for the discomfort. You should wear a comfortable but somewhat tight fitting bra. If you have significant bruising, an ice pack may improve your discomfort. Please make an appointment to return to our office on Sunday If you note any additional difficulties, questions, or concerns, you should contact our office immediately @ [phone] and ask to be transferred to the General Surgery department. Tomás Smith MD 02/18/2018 9:48 AM Signed HISTORY AND PHYSICAL - BREAST COMPLAINT Maria Hale 1965 REFERRING PHYSICIAN: Rylie Michel MD CHIEF COMPLAINT: Persistent left breast abnormality HPI: The patient is a 53 year old female with a complaint of an abnormal mammogram. The patient had a mammogram with ultrasound on January 30, 2018 which demonstrated: IMPRESSION: SUSPICIOUS FINDING - BIOPSY SHOULD BE CONSIDERED - FOLLOW-UP RECOMMENDED The 0.7 cm x 0.4 cm x 0.7 cm oval mass in the right breast is suspicious of malignancy. ?An ultrasound guided biopsy is recommended. The patient denies a history of breast masses. She does perform a self breast exam routinely. She notes no skin changes. She denies nipple discharge. She notes no axillary masses. She notes no family history of breast problems. She notes no significant breast trauma or breast difficulties in the past. The patient had a mammogram with ultrasound on February 28, 2017 which demonstrated: ? IMPRESSION: SUSPICIOUS OF MALIGNANCY - FOLLOW-UP RECOMMENDED The 0.7 cm x 0.4 cm x 0.6 cm oval mass in the left breast is suspicious of malignancy. ?An ultrasound guided biopsy is recommended. Meg wilson/alena:02/28/2017 16:10:23 copy to: BARNEY SALDANA, ph: [phone] Fund Controller: Paula Merlos RT(R)(M), [facility] letter sent: Abnormal ? Mammogram BI-RADS: 4 Suspicious abnormality Ultrasound BI-RADS: 4 Suspicious abnormality Lead Sharepoint Developer: Alena Transcribe Date/Time: Feb ?3:45P Dictated by : MEG BELTRE MD This examination was interpreted and the report reviewed and electronically signed by: MEG BELTRE MD on Feb ?4:10PM ?EST Results-Findings * * *Final Report* * * DATE OF EXAM: Feb ?3:59PM ? [facility] ? 0155 ?- ?US BREAST INCL AXILLA LTD ?- LEFT / PROCEDURE REASON: 6 month followup left breast abnormal mamogram ?? ? * * * * Physician Interpretation * * * * ?#[id number] - SARA DIG DIAG CAD UNI UNILATERAL LEFT DIGITAL DIAGNOSTIC MAMMOGRAM WITH CAD: 02/28/2017 HISTORY: 6 Month Followup Left Breast ? ? Abnormal Mamogram. RESULT: TECHNIQUE: ?The study was acquired using full field digital technology and interpreted from soft copy. Current study was also evaluated with a Computer Aided Detection (CAD). Comparison is made to exams dated: ?08/29/2016 mammogram - [facility] and 08/22/2016 mammogram - [facility]. The tissue of the left breast is heterogeneously dense. This may lower the sensitivity of mammography. There is no mammographically visible abnormality. Biopsy based on the ultrasound is advised. No significant masses, calcifications, or other findings are seen in the breast. SUSPICIOUS OF MALIGNANCY #[id number] - US BREAST INCL AXILLA LTD ULTRASOUND OF LEFT BREAST: 02/28/2017 RESULT: Comparison is made to exams dated: ?08/29/2016 mammogram - [facility] and 08/22/2016 mammogram - [facility]. Real-time ultrasound of the left breast was performed. There is a 0.7 cm x 0.4 cm x 0.6 cm oval mass with a circumscribed margin in the left breast at 9 o'clock middle depth 1 cm from the nipple. ?This oval mass is hypoechoic with internal echoes. ?This abnormality is not significantly changed. ? ? ? . The patient denies a history of breast masses. She does perform a self breast exam routinely. She notes no skin changes. She denies nipple discharge. She notes no axillary masses. She notes no family history of breast problems. She notes no significant breast trauma or breast difficulties in the past. ? The patient has had 3 pregnancies. Her last mammogram was 1 year previously. Her last menstrual period was November 2016. Her first menstrual period was at age [age]. ? The patient is being seen by me today at the request of Dr. RYLIE MICHEL MD for my opinion and advice regarding left breast abnormality. PAST MEDICAL HISTORY Diagnosis Date - NEGATIVE MEDICAL HISTORY PAST SURGICAL HISTORY Procedure Laterality Date - LIGATE FALLOPIAN TUBE 2004 Tubal ligation Current Outpatient Prescriptions: pseudoephedrine (SUDAFED) 60 mg tablet Take 1 tablet by mouth every 6 hours as needed for Cold/Allergy Symptoms. Disp: 30 tablet Rfl: 2 cetirizine (ALL DAY ALLERGY) 10 mg tablet Take 1 tablet by mouth once daily. Disp: 30 tablet Rfl: 5 fluticasone (FLONASE) 50 mcg/actuation nasal spray Use 2 Sprays in each nostril once daily. Rinse mouth after use. Disp: 1 Bottle Rfl: 11 Multivitamins (CHEWABLE MULTI VITAMIN) Chew Take 1 tablet by mouth once daily. CHEW TAB BEFORE SWALLOWING Disp: Rfl: 0 No current facility-administered medications for this visit. ALLERGIES: Patient has no known allergies. PERSONAL HISTORY: Social History Marital status: Spouse name: Years of education: Number of children: 3 Occupational History Occupation Employer Comment [employer] Social History Main Topics Smoking status: Former Smoker Packs/day: 0.00 Years: 0.00 Smokeless tobacco: Never Used Alcohol use: Yes Comment: rarely Drug use: No Sexual activity: Yes Partners with: Male control/protection: Tubal Ligation FAMILY HISTORY: FAMILY HISTORY Problem Relation Age of Onset - Diabetes Mother - Cancer Father lung - Stroke Father REVIEW OF SYMPTOMS: The review of systems data was entered by the nurse and reviewed by me Nursing Notes: Jacquelyn Araya LPN 02/14/2018 9:04 AM Signed INFORMED CONSENT Maria Hale Medical Record: [id number] Procedure:us guided left breast biopsy The risks, benefits and anticipated outcomes of the procedure, the risks and benefits of the alternatives to the procedure and the roles and tasks of the personnel to be involved were discussed with the patient and the patient consents to the procedure and agrees to proceed. I verify that I personally obtained Maria Hale's consent. Jacquelyn Araya LPN February 14, 2018 8:59 AM Dept of GENERAL SURGERY UNIVERSAL PROTOCOL / SAFETY CHECKLIST Procedure to be performed: us guided left breast biopsy Sign in Communication: Completed Time Out: Team Confirms the Correct Patient, Correct Procedure, Correct Site and Site Marking, Correct Position (if applicable), Prep and Dry Time (if applicable). Time: 859 am Affirmation of Time Out: YES Sign Out Discussion: Completed Jacquelyn Araya LPN PHYSICAL EXAMINATION: General: The patient is 53 year old female, well nourished, well hydrated in no acute distress. The patient is oriented to time, place, and person. VITALS: Blood pressure 148/82, pulse 68. There is no height or weight on file to calculate BMI. HEENT: Normal cephalic, ataumatic, pupils are equally round, sclera are anicteric, mucous membranes are moist, oropharynx is clear. Neck has no masses, asymmetry or lymphadenopathy. Thyroid is unremarkable. Respiratory: Clear to auscultation and percussion. Normal respiratory excursion and pattern. Cardiac: Examination is regular rate and rhythm. Abdominal exam: Soft, nontender, with no palpable masses. No hepatosplenomegaly. No palpable hernias. Rectal exam: exam deferred Extremities: no clubbing, cyanosis or edema. No adenopathy. Breast: Visual inspection reveals no retractions, nipple inversion, or skin changes. Palpation of the right breast reveals no dominant or suspicious masses, but multiple benign-feeling nodules. Palpation of the left breast reveals no dominant or suspicious masses, but multiple benign- feeling nodules. Axillary exam demonstrates no suspicious masses in either the left or right axilla. There is no nipple discharge expressed from either the left or right breast. LABORATORY VALUES: As Noted RADIOLOGIC STUDIES: As Noted PROCEDURE: Ultrasound Guided Core Breast Biopsy The risks, benefits and anticipated outcomes of the procedure, the risks and benefits of the alternatives to the procedure, and the roles and tasks of the personnel to be involved, were discussed with the patient, and the patient consents to the procedure and agrees to proceed. After explaining the procedure and consent was obtained,Maria was positioned. The abnormality in the left breast was identified by ultrasound. Lidocaine was injected in to the skin and a small stab incision was made. The Swank core biopsy needle was inserted into the stab incision and advanced. Multiple core were obtained with ultrasound demonstrating targeting into the lesion. A marker clip was then placed via ultrasound guidance. Steristrips were applied to the incision. A bandage was applied to the needle site. Maria tolerated the procedure well. Assessment IMPRESSION: Status post ultrasound guided core biopsy - left breast PLAN: The patient is to return for results of her ultrasound guided breast biopsy. If the patient notes bleeding from the biopsy site, she is to place pressure on the site. Discomfort from brusing can be managed with an ice pack or non steroidal analegics. Diagnoses: (R92.8) Abnormal finding on breast imaging (primary encounter diagnosis) My findings have been communicated to Dr. RYLIE MICHEL MD via shared medical record. This note will be forwarded to Dr. RYLIE MICHEL MD. Return to Clinic: The patient is instructed to follow-up with me in one week. Tomás Smith MD Referring Provider: RYLIE MICHEL [[id number]] Allergies As of Date: 02/14/2018 (No Known Allergies) Date Reviewed: 02/14/2018 Reviewed by: Colton Jennings LPN - Fully Assessed Reason for Visit: Established Patient [175] Cmt: breast f/u Primary Visit Diagnosis:Abnormal finding on breast imaging [R92.8] Prescriptions as of 02/14/2018 Sig: PSEUDOEPHEDRINE 60 MG TABLET Take 1 tablet by mouth every * CETIRIZINE 10 MG TABLET Take 1 tablet by mouth once d* FLUTICASONE 50 MCG/ACTUATION * Use 2 Sprays in each nostril * MULTIVITAMIN CHEWABLE TABLET Take 1 tablet by mouth once d* Problem List As Of Date 02/14/2018 Noted Resolved Lump or mass in breast [N63.0] INVALID FOR* Abnormal mammogram, unspecified [R92.8] INVALID FOR* Benign essential HTN [I10] INVALID FOR* More... Tinnitus [H93.19] INVALID FOR* Other instructions from your clinician: The following instructions are important for you related to your office visit today with the [facility] General Surgeons. Instructions After OFFICE BASED BREAST BIOPSY Please do not take aspirin or other blood thinners for the next few days. After the procedure, Steri-Strips and a dressing will be placed on your small incision. The dressing may be removed in two to three days after the procedure. The Steri-Strips should be left in place until they fall off. If you have bleeding from the biopsy site, hold pressure with a clean gauze. If the bleeding continues, contact our office immediately. I recommend taking Advil or Tylenol for the discomfort. You should wear a comfortable but somewhat tight fitting bra. If you have significant bruising, an ice pack may improve your discomfort. Please make an appointment to return to our office on Sunday If you note any additional difficulties, questions, or concerns, you should contact our office immediately @ [phone] and ask to be transferred to the General Surgery department. Visit Notes: >> Jacquelyn Araya LPN [facility] February 14, 2018 8:59 AM Status: Signed INFORMED CONSENT Maria Echavarriaward Medical Record: [id number] Procedure:us guided left breast biopsy The risks, benefits and anticipated outcomes of the procedure, the risks and benefits of the alternatives to the procedure and the roles and tasks of the personnel to be involved were discussed with the patient and the patient consents to the procedure and agrees to proceed. I verify that I personally obtained Maria Hale's consent. Jacquelyn Araya LPN February 14, 2018 8:59 AM Dept of GENERAL SURGERY [employer] / SAFETY CHECKLIST Procedure to be performed: us guided left breast biopsy Sign in Communication: Completed Time Out: Team Confirms the Correct Patient, Correct Procedure, Correct Site and Site Marking, Correct Position (if applicable), Prep and Dry Time (if applicable). Time: 859 am Affirmation of Time Out: YES Sign Out Discussion: Completed Jacquelyn Araya LPN Follow-up and Disposition History Recorded Encounter Status:Closed by TOMÁS SMITH MD on 02/18/18 BREAST BIOPSY Observed: 02/14/2018 Status: F Source: [place] ([facility] SITE) 12:00 AM [facility] REPOSITORY Patient: MARIA HALE : 1965 (53/F) Acct Num: [id number] Phys: Joaquin REAVES,Tomás Unit Num: [id number] Loc: LABSPEC Specimen: [id number] Received: 02/14/18 - 1332 Spec Type: BREAST BX TISSUES TISSUES: Left breast, NOS COMMENT Correlation with clinical, radiologic findings and appropriate follow up are necessary. GROSS DESCRIPTION Received is one container labeled with the patient's name and not further designated. The specimen consists of multiple elongated fragments of banks-yellow fibroadipose tissue that in aggregate measure 2 x 0.5 x 0.1 cm. The entire specimen is submitted in one cassette. / SJ:lindy 02/14/18 TC:1 CPT: 27350 HEADER OPERATION: Ultrasound-guided left breast biopsy PRE-OP DIAGNOSIS: Abnormal mammogram TISSUE SUBMITTED: Left breast biopsy ISCHEMIC TIME: 2 minutes MICROSCOPIC DESCRIPTION Slides are reviewed. MICROSCOPIC DIAGNOSIS Left breast, ultrasound-guided core biopsy: Hyalinized fibroadenoma. Negative for atypia or malignancy. SJ:lindy 02/15/18 Signed Atilio Merrill 02/15/18 <signature on file> Performed By: #### PBRBX #### [facility] [address] [place], [address] CNCO Observed: 01/30/2018 Status: COMPLETED Source: [place] 9:49 AM [facility] REPOSITORY HNO ID: [id number] Author: Coordinator, Mammography Service: (none) Author Type: Physician Type: Letter Filed: 01/31/2018 11:31 PM Note Text: January 30, 2018 PID: [id number] Maria Hale [address] [place] [address] Dear Cassy Harry, Your recent breast imaging exam on 01/30/2018 showed an abnormal area. At this time we recommend further evaluation. This does not necessarily mean that there is a serious problem in your breast, but it should not be ignored. Please contact your physician as soon as possible to discuss the results of this exam and decide what the next steps in your medical care should be. If you have already been notified of these findings, please disregard this letter. Thank you for allowing us to help in meeting your health care needs. Sincerely, Dr. Beltre Interpreting Radiologist [facility] (Abnormal) CNCO Observed: 01/30/2018 Status: COMPLETED Source: [place] 9:49 AM [facility] REPOSITORY HNO ID: [id number] Author: Coordinator, Mammography Service: (none) Author Type: Physician Type: Letter Filed: 01/31/2018 11:31 PM Note Text: January 30, 2018 PID: [id number] Maria Martínez Harry [address] [place] [address] Dear [place], Your recent breast imaging exam on 01/30/2018 showed an abnormal area. At this time we recommend further evaluation. This does not necessarily mean that there is a serious problem in your breast, but it should not be ignored. Please contact your physician as soon as possible to discuss the results of this exam and decide what the next steps in your medical care should be. If you have already been notified of these findings, please disregard this letter. Thank you for allowing us to help in meeting your health care needs. Sincerely, Dr. Beltre Interpreting Radiologist [facility] (Abnormal) [facility] [employer] BREAST LTD Observed: 01/30/2018 Status: C Source: [facility] 9:43 AM [facility] REPOSITORY * * *Final Report* * * * * * SEE BOTTOM OF REPORT FOR ADDENDED TEXT * * * DATE OF EXAM: Jan 30 2018 9:43AM [facility] 0593 - [facility] US BREAST LTD LT / PROCEDURE REASON: call backbilateral/left breast / abnormal mammogram * * * * Physician Interpretation * * * * THIS REPORT HAS BEEN AMENDED. #[id number] - [facility] DIAGNOSTIC ANTONIO BILATERAL DIGITAL DIAGNOSTIC MAMMOGRAM WITH CAD: 01/30/2018 HISTORY: /Bilateral Diagnostic Mammogram LEFT Breast Follow up Abnormal Mammogram. RESULT: TECHNIQUE: The study was acquired using full field digital technology and interpreted from soft copy. Current study was also evaluated with a Computer Aided Detection (CAD). Comparison is made to exams dated: 02/28/2017 mammogram, 08/29/2016 mammogram - [facility], and 08/22/2016 mammogram - [facility]. The tissue of both breasts is heterogeneously dense. This may lower the sensitivity of mammography. No significant masses, calcifications, or other findings are seen in either breast. SUSPICIOUS FINDING - BIOPSY SHOULD BE CONSIDERED Biopsy based on the sonographic findings is still advised. #[id number] - [facility] BREAST [facility] ULTRASOUND OF RIGHT BREAST: 01/30/2018 RESULT: Comparison is made to exams dated: 02/28/2017 mammogram, 08/29/2016 mammogram - [facility], and 08/22/2016 mammogram - [facility]. Real-time ultrasound of the right breast was performed. There is a 0.7 cm x 0.4 cm x 0.7 cm oval mass with a circumscribed margin in the right breast at 9 o'clock anterior depth 1 cm from the nipple. This oval mass is hypoechoic with a well-defined boundary and internal echoes. This abnormality is not significantly changed. IMPRESSION: SUSPICIOUS FINDING - BIOPSY SHOULD BE CONSIDERED - FOLLOW-UP RECOMMENDED The 0.7 cm x 0.4 cm x 0.7 cm oval mass in the right breast is suspicious of malignancy. An ultrasound guided biopsy is recommended. Meg wilson/alena:01/30/2018 09:49:21 Fund Controller: Erendira CASSIDY(Lou)([facility] sent: Abnormal Mammogram BI-RADS: 4 Suspicious finding - Biopsy should be considered Ultrasound BI-RADS: 4 Suspicious finding - Biopsy should be considered AMENDMENT: 03/13/2018 Meg Beltre M.D. The previously issued reports described the palpable and sonographic abnormality to be on the right. This is incorrect. The findings are on the left. Amended BI-RADS: 4 Suspicious finding - Biopsy should be considered Lead Sharepoint Developer: Alena Transcribe Date/Time: Jan 30 2018 8:51A Dictated by : MEG BELTRE MD This examination was interpreted and the report reviewed and electronically signed by: MEG BELTRE MD on Jan 30 2018 9:49AM EST This document has been addended by: MEG BELTRE MD on Mar 13 2018 10:44AM EST [id number] PROGRESS Observed: 01/30/2018 Status: COMPLETED Source: [place] 9:33 AM [facility] REPOSITORY HNO ID: [id number] Author: Regina Rendon Rdms Service: (none) Author Type: (none) Type: Progress Notes Filed: 01/30/2018 9:49 AM Note Text: Radiology Service Progress Note PATIENT NAME: Maria Hale DATE OF SERVICE: January 30, 2018 TIME: 9:33 AM PATIENT IDENTITY VERIFICATION COMPLETED USING TWO (2) METHODS: Patient confirmed name verbally and Date of . PATIENT GENDER DATA: Female. status: : No status: NO. PATIENT RELEVANT IMPLANT DATA REVIEWED: Not Applicable RADIOLOGY DEPARTMENT: Ultrasound PERIPHERAL IV DATA: Not applicable SIGNED BY: Regina Rendon Rdms January 30, 2018 9:33 AM PROGRESS Observed: 01/30/2018 Status: COMPLETED Source: [place] 9:21 AM [facility] REPOSITORY HNO ID: [id number] Author: Erendira Miller Service: (none) Author Type: (none) Type: Progress Notes Filed: 01/30/2018 9:24 AM Note Text: Radiology Service Progress Note PATIENT NAME: Maria Hale DATE OF SERVICE: January 30, 2018 TIME: 9:21 AM PATIENT IDENTITY VERIFICATION COMPLETED USING TWO (2) METHODS: Patient confirmed name verbally and Date of . PATIENT GENDER DATA: Female. status: : No status: NO. PATIENT RELEVANT IMPLANT DATA REVIEWED: Not Applicable RADIOLOGY DEPARTMENT: [facility] BILATERAL DIAGNOSTIC MAMMOGRAM PERIPHERAL IV DATA: Not applicableNO SIGNED BY: Erendira Cassidy January 30, 2018 9:21 AM [facility] DIAGNOSTIC ANTONIO Observed: 01/30/2018 Status: C Source: [place] 9:09 AM [facility] REPOSITORY * * *Final Report* * * * * * SEE BOTTOM OF REPORT FOR ADDENDED TEXT * * * DATE OF EXAM: Jan 30 2018 9:09AM [facility] 0620 - [facility] DIAGNOSTIC ANTONIO / PROCEDURE REASON: call backbilateral/left breast / abnormal mammogram * * * * Physician Interpretation * * * * RESULT: THIS REPORT HAS BEEN AMENDED. #[id number] - [facility] DIAGNOSTIC ANTONIO BILATERAL DIGITAL DIAGNOSTIC MAMMOGRAM WITH CAD: 01/30/2018 HISTORY: /Bilateral Diagnostic Mammogram LEFT Breast Follow up Abnormal Mammogram. RESULT: TECHNIQUE: The study was acquired using full field digital technology and interpreted from soft copy. Current study was also evaluated with a Computer Aided Detection (CAD). Comparison is made to exams dated: 02/28/2017 mammogram, 08/29/2016 mammogram - [facility], and 08/22/2016 mammogram - [facility]. The tissue of both breasts is heterogeneously dense. This may lower the sensitivity of mammography. No significant masses, calcifications, or other findings are seen in either breast. SUSPICIOUS FINDING - BIOPSY SHOULD BE CONSIDERED Biopsy based on the sonographic findings is still advised. #[id number] - [facility] US BREAST LTD LT ULTRASOUND OF RIGHT BREAST: 01/30/2018 RESULT: Comparison is made to exams dated: 02/28/2017 mammogram, 08/29/2016 mammogram - [facility], and 08/22/2016 mammogram - [facility]. Real-time ultrasound of the right breast was performed. There is a 0.7 cm x 0.4 cm x 0.7 cm oval mass with a circumscribed margin in the right breast at 9 o'clock anterior depth 1 cm from the nipple. This oval mass is hypoechoic with a well-defined boundary and internal echoes. This abnormality is not significantly changed. IMPRESSION: SUSPICIOUS FINDING - BIOPSY SHOULD BE CONSIDERED - FOLLOW-UP RECOMMENDED The 0.7 cm x 0.4 cm x 0.7 cm oval mass in the right breast is suspicious of malignancy. An ultrasound guided biopsy is recommended. Meg wilson/alena:01/30/2018 09:49:21 Fund Controller: Erendira CHRISTIE)(Cristofer, [facility] letter sent: Abnormal Mammogram BI-RADS: 4 Suspicious finding - Biopsy should be considered Ultrasound BI-RADS: 4 Suspicious finding - Biopsy should be considered AMENDMENT: 03/13/2018 Meg Beltre M.D. The previously issued reports described the palpable and sonographic abnormality to be on the right. This is incorrect. The findings are on the left. Amended BI-RADS: 4 Suspicious finding - Biopsy should be considered Lead Sharepoint Developer: Alena Transcribe Date/Time: Jan 30 2018 8:51A Dictated by: MEG BELTRE MD This examination was interpreted and the report reviewed and electronically signed by: MEG BELTRE MD on Jan 30 2018 9:49AM EST This document has been addended by: MEG BELTRE MD on Mar 13 2018 10:44AM EST [id number] ALLERGIES ALLERGIES DATE TYPE / CODE NAME / CODE REACTION SEVERITY SOURCE 09/12/2018 Drug No Known Unknown [facility] Allergy/416 Allergies/F42060 Hospital 857418(SNOM 0388(RXNORM) Repository ED CT) Drug NO KNOWN [facility] Class/52227 ALLERGIES Main [place] 1003(SNOMED Repository CT) ENCOUNTERS ENCOUNTERS ADMIT/DISCHARGE ACCOUNT ADMITTING ENCOUNTER LOCATION SOURCE NUMBER CLASS 10/18/2018 [id number] [facility] ing:PT Repository 10/16/2018/10/16/19 [id number] Ambulatory [address] Repository 10/11/2018 [id number] [facility] ing:MTRAD Repository 10/11/2018 [id number] [facility] ing:RAD.FUTUR Repository E 09/19/2018 [id number] [facility] ing:LAB Repository 09/12/2018/09/12/20 [id number] Ambulatory BMSBuilding:B [place] [facility] Repository 09/03/2018 [id number] Ambulatory [facility] Hospital ing:OPBD Repository 08/09/[id number] [facility] Hospital ing:HPRAD Repository 02/14/2018 [id number] [facility] ing:LABSPEC Repository 02/14/2018/02/20/20 [id number] Ambulatory [address] Repository 01/30/2018/01/31/20 [id number] Ambulatory [address] Repository 01/30/2018/01/31/[id number] Repository PAYERS PAYERS ENCOUNTER GUARANTOR PAYER SUBSCRIBER SOURCE 10/18/2018 MARIA L Primary MARIA L [place] [id number] Insurance:CORESOURCEP LUTSCHDOB[facility] Number: [id number] [place] [id number] Repository [address]Dfu: 330) Date:1762-62-33[phone] () [address] [id number]: 10/18/2018 Secondary NOT GIVENUNK [place] Insurance:SELF PAY [facility] Number: Effective Repository Date:2018-09-12 10/11/2018 MARIA L Primary MARIA L [place] [id number] Insurance:CORESOURCEP LUTSCHDOB: [facility] Number: [id number] [place], [place] [id number] Repository [address]Hdk: 330) Date:4165-07-54[phone] () [address] [id number]: 10/11/2018 Secondary NOT GIVENUNK [place] Insurance:SELF PAY [facility] Number: Effective Repository Date:2018-10-11 10/11/2018 MARIA L Primary MARIA L [place] [id number] Insurance:CORESOURCEP LUTSCHDOB: [facility] Number: [id number] [place], [place] [id number] Repository [address]Pbi: (330) Date:1493-81-78[phone] () [address] [id number]: 10/11/2018 Secondary NOT GIVENUNK [place] Insurance:SELF PAY [facility] Number: Effective Repository Date:2018-10-11 09/19/2018 MARIA L Primary MARIA L [place] [id number] Insurance:CORESOURCEP LUTSCHDOB: [facility] Number: [id number], [place] [id number] Repository [address]Zol: ([phone]) Date:1869-61-98[phone] () [address] [id number]: 09/19/2018 Secondary NOT GIVENUNK [place] Insurance:SELF PAY [facility] Number: Effective Repository Date:2018-09-19 09/12/2018 MARIA L Primary MARIA L [place] [id number] Insurance:CORESOURCEP LUTSCHDOB: Community [facility] Number: [id number] [place], [place] [id number] Repository [address]Ltf: (330) Date:1622-84-45[phone] () [address] [id number]: 09/12/2018 Secondary NOT GIVENUNK [place] Insurance:SELF PAY [facility] Number: Effective Repository Date:2018-09-12 09/03/2018 MARIA L Primary MARIA L [place] [id number] Insurance:CORESOURCEP LUTSCHDOB: Community [place] [facility] Number: [id number] [place], [place] [id number] Repository [address]Qas: (330) Date:3106-75-19[phone] () [address] [address]OW: 09/03/2018 Secondary NOT GIVENUNK [place] Insurance:SELF PAY [facility] Number: Effective Repository Date:2018-08-26 08/09/2018 MARIA L Primary MARIA L [place] [id number] Insurance:CORESOURCEP LUTSCHDOB: Community [place] [facility] Number: [id number] [place], [place] [id number] Repository [address]Ubp: (330) Date:3785-57-98[phone] () [address] [id number]: 08/09/2018 Secondary NOT GIVENUNK [place] Insurance:SELF PAY [facility] Number: Effective Repository Date:2018-08-09 02/14/2018 MARIA L Primary MARIA L [place] [id number] Insurance:SUJATA GOMEZB: [facility] Number: [id number], [id number] [place]ository [place] [address]Xgb: Date:4063-97-64YM [address] () [address]QI: 02/14/2018 Secondary NOT GIVENUNK [place] Insurance:SELF PAY [facility] Number: Effective Repository Date:2018-02-14
== END ==
PROVIDERS: Family Provider Family Medicine; PCP Family Medicine; Referring Provider Family Medicine; Visit Provider Family Medicine
DX: M25.562 Pain in left knee (principal)
CPT/HCPCS: 73564

== ENCOUNTER 2018-12-03 16:00 | Outpatient (RCR) | payer OTHER, SELFPAY ==
--- NOTE | 2018-09-26 18:50 | HP.PTEVAL_ITS ---
Patient's Visit Information PRESTON HALE is a 53 year old F referred to Physical Therapy by Char Antonio DO with a diagnosis of L hip pain. Date of Evaluation: 09/26/18 Physical Therapist: Eric Tilley PT, ATC - Visit Plan Frequency: 2x /Week Duration: 2 Weeks Plan: L LE stretching and strengthening, core stab ex's, bike, and HEP - Subjective Findings: Pt reports her L hip has been sore for 6 mos. Pt reports her pain had an insidious onset in nature, but notes she did fall 20 years ago and notes this may have had something to do with it. Pt reports she has always been a runner, so her knees are shot as well. Pt reports she is not able to run at this time secondary to pain. Pt would like to be able to go back to running one day to help relieve her stress. No tingling or numbness in L LE at this time. Pt reports sleep difficulty secondary to pain. Pt reports she feels more pain when she sits around and does nothing. 2/10 at rest (a dull ache), 8/10 at worst (stops my in my tracks) - Pain L hip Pain Intensity (Out of 10): 2 Pain Intensity Range: 8 - Objective Neuro: B LE sensation is WNL to light touch. B patellar reflex= 2+/3. Palpation: No pain or obvious deformity around greater trochanter of L hip. MMT: L hip IR/ER is 4/5. All other B LE measurements 5/5 throughout. ROM: B LE' s are WNL at this time. Special testing: Pt has a 1/4 leg length discrepancy with L being shorter than R LE. Pos 90/90 test. limited flexibility throughout - Goals Goal 1:: I with HEP in 4 visits - Rehabilitation Potential Physical Therapy Diagnosis: L hip pain, weakness, and limited flexibility secondary to debility of L hip Rehabilitation Potential: Good - Anticipated Interventions Patient/Client Instruction: Educate patient on: Condition, Plan of Care For the Purpose of:: To improve self management Therapeutic Exercise to Include: Strength training, Endurance training, Balance training, Flexibilty training, Active ROM, Dynamic Lumbar Stabilization For the Purpose of:: To decrease pain, To increase ROM, To improve muscle performance and motor function Cryotherapy (ice pack, ice massage): Yes For the Purpose of:: To decrease pain Thank you for the opportunity to evaluate your patient. For Medicare and Medicare HMO plans, please review the plan of care and approve it. It will need to be FAXED BACK to us at [phone] for Medicare purposes. For Medicare only, by signing this I certify the plan of care. Please let me know if there are questions or concerns regarding this plan of care. Physician Signature: Date:_
--- NOTE | 2019-01-23 13:47 | HP.PT.NRP ---
HP - Discharge Summary (1) - Patient Information PRESTON HALE was seen in my office for initial evaluation on 09/26/18. The following Plan of Care was established for this patient: Initial Frequency: 2x /Week Initial Duration: 2 Weeks - Anticipated Interventions Patient/Client Instruction: Educate patient on: Condition, Plan of Care For the Purpose of:: To improve self management Therapeutic Exercise to Include: Strength training, Endurance training, Balance training, Flexibilty training, Active ROM, Dynamic Lumbar Stabilization For the Purpose of:: To decrease pain, To increase ROM, To improve muscle performance and motor function Cryotherapy (ice pack, ice massage): Yes For the Purpose of:: To decrease pain This patient was last seen in our office . Pertinent comments regarding their Physical therapy will appear below: Pt was treated for 9 PT visits through the date of 12/03/18 for her L hip pain. Pt has not returned through todays date, and is therefore discontinued at this time. At this point I will be discontinuing this patient from physical therapy. I would be happy to see this patient again in the future if found appropriate by the physician. Thank you! Eric Tilley, PT, ATC
== END 2018-12-03 19:00 | disposition home or self-care (01) ==
LOC: PT 16:00
PROVIDERS: Family Provider Family Medicine; PCP Family Medicine; Visit Provider Orthopaedic Surgery
DX: M16.12 Unilateral primary osteoarthritis, left hip (principal); M76.32 Iliotibial band syndrome, left leg; M70.62 Trochanteric bursitis, left hip
CPT/HCPCS: 97014; 97110; 97162; 97530; G0283

== ENCOUNTER → 2019-02-14 08:39 | Outpatient (CLI) | payer OTHER, SELFPAY ==
[2018-10-28 08:08] VITALS: BMI 24.1
[2019-02-14 12:44] LABS: Absolute Lymphocyte Count 2.66 X10^3/ul (0.83-4.51); Absolute Neutrophil Count 3.4 X10^3/uL (2.0-7.7); Basophil# 0.04 X10^3/uL; Basophil% 0.6 % (0-1); Eosinophil# 0.08 X10^3/uL; Eosinophils% 1.2 % (0-5); Hematocrit 40.3 % (37-47); Lymphocyte # 2.66 X10^3/ul (4.0); Lymphocyte % 39.3 % (19-41); Mean Corp Hgb Conc 32.3 g/gl (32-36); Mean Corpuscular Hgb 28.7 pg (27.0-32.0); Mean Platelet Vol. 10.8 fl (6.2-12.0); Monocyte# 0.61 X10^3/uL; Neutrophil # 3.37 X10^3/uL (2.7-7.7); Neutrophil % 49.8 % (47-70); Platelet Count 278 K/mm3 (150-450); RBC Distribution Width CV 14.7 % (11.6-14.6); Red Blood Count 4.53 M/mm3 (4.2-5.4); White Blood Count 6.8 K/mm3 (4.4-11.0)
[2019-02-14 12:49] LABS: POSITIVE COUNT NO; POSITIVE DIFFERENTIAL NO; POSITIVE MORPHOLOGY NO
== END ==
PROVIDERS: Family Provider Family Medicine; PCP Family Medicine; Visit Provider Family Medicine
DX: Z01.818 Encounter for other preprocedural examination (principal)
CPT/HCPCS: 36415; 85025

== ENCOUNTER 2019-02-25 05:43 | Inpatient (IN) | payer OTHER, SELFPAY ==
[2018-10-28 08:08] VITALS: BMI 24.1
[2019-02-18 11:21] VITALS: BP 148/88; PULSE 63; RESP 16; TEMP 36.8; O2SAT 98; BMI 25.5
--- NOTE | 2019-02-21 11:38 | CASEMGMT ---
ATTEMPTED TO REACH PATIENT TO DISCUSS DISCHARGE NEEDS AFTER UPCOMING SURGERY. NO ANSWER ON CELL PHONE, VOICEMAIL LEFT ASKING FOR A RETURN CALL. TRISTIN VELARDE LPN CLINICAL SUPPORT
--- NOTE | 2019-02-21 11:59 | CASEMGMT ---
Call placed to patient to discuss discharge needs after upcoming surgery. Patient plans to return home and will have assistance at home. Outpatient PT is not set up yet, patient states that the Dr's office told her she would initially have Home Health PT - encouraged patient to contact Dr's office and inquire. Patient has a walker, shower seat, grab bars, and a toilet riser at home. There is a bedroom and bathroom on the 1st level of the home and 2 steps to enter home from the garage. Informed patient that RN-CM will likely follow up after surgery. Ni Chadwick LPN Clinical Support
[2019-02-25] VITALS (10 sets, daily range): BP systolic 121–146; BP diastolic 68–98; PULSE 47–77; RESP 16–18; TEMP 35.7–36.8; O2SAT 97–100; BMI 25.5
[2019-02-25] MEDS: Acetaminophen 500 MG Tablet PO (06:18)
[2019-02-25] MEDS: Celecoxib 200 MG Capsule PO (06:19)
[2019-02-25] MEDS: Pregabalin 75 MG Capsule PO (06:19)
[2019-02-25] MEDS: Cefazolin 2 GM in 0.9% Normal Saline 100 ML IV ×2 (07:54→16:21)
--- NOTE | 2019-02-25 08:00 | PCM.HP.BLA ---
History and Physical Date of Admission: 02/25/19 MR#: [id number] Acct: [id number] Name: PRESTON HALE Rep #: [id number] : 1965 Provider: Colton Myers DO Age/Sex: 53/F Location: [facility] [place].SMO Status: Signed Intake Intake Visit Reasons: Amb Documentation Allergies No Known Allergies Allergy (Verified 02/07/19 09:38) Medications cetirizine 10 mg capsule 10 mg PO DAILY 09/12/18 [History Confirmed 09/12/18] multivitamin tablet 1 tab PO DAILY 09/12/18 [History Confirmed 09/12/18] triamcinolone acetonide 55 mcg nasal spray aerosol 1 spray INTRANASAL DAILY 09/12/18 [History Confirmed 09/12/18] meloxicam 15 mg tablet 15 mg PO DAILY #30 tab 10/28/18 [Rx Confirmed 10/28/18] PFSH Family History Mother Diabetes Hypertension Father Cancer HPI Amb Documentation: Surgical H&P: Yes Details: Parts of this documentation were recorded by a scribe, this documentation accurately reflects the service provided and the decisions made by , Christelle Wolf 02/03/19 1500. PRESTON HALE is a 53 year old F here today for left hip pain. F/U after completing PT. Patient has had this hip pain for about 1 year. Patient states she had a hip x-ray completed in July of 2018. Has had PT states it was a little effective but not very much. Patient takes meloxicam. Denies any recent injury to the hip. Denies any RA, lupus inflammatory or connective tissue d/o. Patient was on fci steroid when she had her first child during . States he most pain is left groin and radiates around to her buttock. States denies numbness or tingling but does get shooting pain that does go below the knee about half-way and leg. She does complain of a leg length discrepancy and wears a 1 inch heel lift on the left ROS Const Reports system reviewed and no additional complaints, except as docu Eyes Reports system reviewed and no additional complaints, except as docu ENT Reports system reviewed and no additional complaints, except as docu Card Reports system reviewed and no additional complaints, except as docu Resp Reports system reviewed and no additional complaints, except as docu GI Reports system reviewed and no additional complaints, except as docu Musc Reports system reviewed and no additional complaints, except as docu, Reports as per HPI Skin/Breast Reports system reviewed and no additional complaints, except as docu Neuro Yes system reviewed and no additional complaints, except as docu Psych Reports system reviewed and no additional complaints, except as docu Endo Reports system reviewed and no additional complaints, except as docu Grzegorz/Lymph Reports system reviewed and no additional complaints, except as docu Aller/Immun Reports system reviewed and no additional complaints, except as docu Ortho Exam Right Knee Skin/Wound: No swelling KNEE: prominent patella. Left Knee Skin/Wound: No swelling Examination: No med jt line tenderness, Yes Lat jt line tenderness, No Bernadine's Test Stability: NML: Anterior Drawer, NML: Lupe, NML: Posterior Drawer KNEE: prominent patella Lateral ligaments intact. Left Hip Skin/Wound: Yes CDI, No Ecchymosis, No soft tissue swelling, No Erythema Hip: Absent eccymosis, soft tissue swelling, erythema or TTP Greater Troch internal rotation @90 degree flexion: 8 degrees external rotation @90 degree extension: 65 degrees Special Tests: TTP Greater Troch Everton's Signs: no Overreaction Homans Sign: No HIP: 5/5 flex, add and abd. intact sensation to light touch no gross motor or sensory deficits no significant swelling in the leg palpable pedal pulse Supplemental Info 08/09/2018 left hip x-ray: Severe left hip OA [id number] large spurs superior and inferior there is some shortening compared to the account. Her lower lumbar spine is captured on the AP pelvis and there is degenerative disc disease at the lower level Assessment & Plan Problems 1. Primary osteoarthritis of left hip M16.12 Plan Patient has severe zzvr-[id number]-[id number] left hip arthritis and has failed extensive conservative treatment we did review surgical versus nonsurgical intervention including risk of bleeding infection nerve artery tissue damage need for further surgery continue pain postoperative stiffness 6 active postoperative course dislocation leg length discrepancy and postoperative restrictions. She does wish to proceed with elective left total hip arthroplasty we will schedule this today consent was signed she will call if she has any further questions or concerns Since patient has tried PT and Mobic her next steps would be to discuss AURE if she this pain is limiting her ADLs. Reviewed the pre-operative plans of a left AURE with the patient. Risks and benefits of the procedure were fully explained, including but not limited to infection, neurovascular injury, continued pain, arthritis, stiffness, need for further surgery, re-injury, DVT, PE, general risks of anesthesia, and loss of limb or life. The patient understands all the risks. Educated that this would be a press fit implants. Educated that there may be fx to surrounding bones which is not common. Patient educated that she will be in the hospital for 1-2 nights and receive IV ATBs and pain medications. Patient will be able to walk and stand on her left leg right away but will have limitations with bending. She may not bend more than 90 degrees. She will need to wear thigh high stockings for about 2 weeks post op. Patient would like to sign consent this day. PCP is Teresa Darby. Educated to stop Mobic 7 days prior to surgery. Patient may take 1000mg of Tylenol up to 4 times a day. Denies any clotting disorders, does not smoke. Patient may drive when she is not on Narcotics. Educated that she will need off for at least 6 weeks. Patient will have PT in hospital then will be on PT for about 8 weeks. Patient will need prophylactic ATBs prior to any dental work. Patient may shower at day 3 post-op Follow up 2 weeks and 6weeks and 1 year post op or sooner if pain, swelling, numbness or associated symptoms, or concerns develop. All questions answered. Patient in agreement of plan. Plan Detail Health Concerns Coding Level of Care Code Off vis,new,level 3 Diagnoses Primary osteoarthritis of left hip M16.12 02/10/19 1600 <Electronically signed by Colton Myers DO> Date Colton Myers DO I have re-examined the patient. There are no clinical changes since date of exam
--- NOTE | 2019-02-25 09:59 | RAD_ITS ---
STUDY: X-RAY - PELVIS AND LEFT HIP REASON FOR EXAM: Female, 54 years old. Total left hip replacement. TECHNIQUE: 2 views of the pelvis and hip. COMPARISON: None. FINDINGS: The patient is status post left total hip replacement. There is good alignment. Postoperative soft tissue changes. RAD/Hip Min 2 Views (Portable) IMPRESSION: Status post left hip replacement. There is good alignment. Postoperative soft tissue changes. Electronically Signed: Reggie Spicer, at 12:29 EDT , Service support ,
--- NOTE | 2019-02-25 10:05 | PCM.OPRPT ---
Report of Operation Date of Procedure: 02/25/19 Description of Surgical Findings:: Preoperative diagnosis: DJD left hip Postoperative diagnosis: Same Procedure: Left total hip arthroplasty Implants: Delfino Accolade II stem size 4 132 degree neck angle -5 neck length 54 mm cup with 30 mm cancellous screw 36 mm ceramic head Anesthesia: General EBL: 250 cc Complications: None Condition: Stable to PACU Indication for procedure: his is a 54-year-old female with who has had long-standing arthrosis of the hip who has failed conservative treatment and wished to undergo total hip arthroplasty. We did discuss operative versus nonoperative intervention including risks of bleeding, infection , nerve artery tissue damage, need for further surgery, fracture, leg length discrepancy dislocation blood clot and need for postoperative physical therapy and postoperative expectations. An informed consent was signed. Procedure: Patient was met in the preoperative holding area once again the operative extremity was identified by both patient and physician and was marked. Patient was met by anesthesia . A Higgins catheter was placed patient was then positioned in the lateral decubitus position on a well-padded pegboard with an axillary roll. All bony prominences were checked and padded. The patient was prepped and draped in the usual sterile fashion. A timeout was called to ensure the proper patient procedure and extremity were being contemplated. Anatomic landmarks were palpated and marked for a standard posterior lateral approach. A timeout was called to ensure the proper patient procedure and extremity were being contemplated. A 10 blade scalpel was used to make a posterior incision through the skin and subcutaneous tissue. In retractors were used and electrocautery was used to maintain meticulous hemostasis and dissect full-thickness flaps until the gluteal fascia was reached. The gluteal fascia was incised in line with the gluteal fibers. The bursal tissue was then freed from the underside and a Charnley retractor was placed. The fatpad was elevated off of the external rotators with electrocautery and the external rotators were dissected off of the greater trochanter including the piriformis and were tagged with #1 Ethibond for later repair. The joint capsule opened with posterior trapdoor technique. The hip was surgically dislocated. Hohmann was placed around the lesser trochanter. A neck cutting guide was used to christina the neck with a Bovie and an oscillating saw was used complete the femoral neck cut. The femoral head was then removed and sized. We then turned our attention to the acetabulum. A Bovie was used to make a perforation in the anterior joint capsule and a pointed Hohmann was placed this was repeated in the 6 o'clock position in a wide point at home and was placed there. With a long handled knife the labral and pulmonary tissue were removed. We then began sequential reaming until the appropriate size was achieved. We then fit the acetabular shell in place with good ability and proceeded to place a posterior superior screw by drilling first measuring and inserting the screw. We then inserted a trial liner. And turned our attention back to the femur at this point a femoral elevator was used. As well as a pointed wide Hohmann around the lesser trochanter and a Hohmann to help retract the gluteus medius. A box chisel was used to remove excess lateral neck followed by a canal finder and a lateralizing reamer. This was followed by sequential broaches attention was made of the version within the canal. Once the final broach was seated we then trialed reduced the hip it was determined that a 132 degree neck angle with a -5 offset was the appropriate size. We did use muscle relaxation when tensioning the hip however she was significantly short preoperative Tadeo and lengthened her as much as we could without undue tension I did not want to have her unable to extend the hip. We did use EKG leads on contralateral knee And heel for palpation of leg length. we then checked ability with shuck testing as well as flexion and terminal rotation then proceeded with hip extension and checked leg lengths at the knees and heels. At this point trials were removed. A posterior lipped liner was inserted to the cup. The femoral stem was inserted. We re-trialed and then proceeded to impact the femoral head onto the Cortes taper. We then surgically reduce the hip check stability again and leg lengths and were satisfied. Betadine rinse was allowed to sit for 5 minutes while everyone changed their gloves. Thorough irrigation was performed. Followed by closure of the external rotators with #2 FiberWire followed by closure of gluteal fascia with #1 Ethibond. 0 Vicryl fat stitches and 2-0 Vicryl subcutaneous stitches and esme in the skin. Dressing was applied in the form of Xeroform 4 x 4 ABD Ioband and an abduction pillow was placed. Patient tolerated the procedure well there was no intraoperative complications all counts were correct and the patient was brought back to the PACU in stable condition
[2019-02-25] MEDS: Bupiv/Epi 0.5% Mpf 30 ML Vial (10:06)
--- NOTE | 2019-02-25 10:09 | OP.PCM_ITS ---
Report of Operation Date of Procedure: 02/25/19 Description of Surgical Findings:: Preoperative diagnosis: DJD left hip Postoperative diagnosis: Same Procedure: Left total hip arthroplasty Implants: Delfino Accolade II stem size 4 132 degree neck angle -5 neck length 54 mm cup with 30 mm cancellous screw 36 mm ceramic head Anesthesia: General EBL: 250 cc Complications: None Condition: Stable to PACU Indication for procedure: his is a 54-year-old female with who has had long- standing arthrosis of the hip who has failed conservative treatment and wished to undergo total hip arthroplasty. We did discuss operative versus nonoperative intervention including risks of bleeding, infection , nerve artery tissue damage , need for further surgery, fracture, leg length discrepancy dislocation blood clot and need for postoperative physical therapy and postoperative expectations. An informed consent was signed. Procedure: Patient was met in the preoperative holding area once again the operative extremity was identified by both patient and physician and was marked. Patient was met by anesthesia . A Higgins catheter was placed patient was then positioned in the lateral decubitus position on a well-padded pegboard with an axillary roll. All bony prominences were checked and padded. The patient was prepped and draped in the usual sterile fashion. A timeout was called to ensure the proper patient procedure and extremity were being contemplated. Anatomic landmarks were palpated and marked for a standard posterior lateral approach. A timeout was called to ensure the proper patient procedure and extremity were being contemplated. A 10 blade scalpel was used to make a posterior incision through the skin and subcutaneous tissue. In retractors were used and electrocautery was used to maintain meticulous hemostasis and dissect full- thickness flaps until the gluteal fascia was reached. The gluteal fascia was incised in line with the gluteal fibers. The bursal tissue was then freed from the underside and a Charnley retractor was placed. The fatpad was elevated off of the external rotators with electrocautery and the external rotators were dissected off of the greater trochanter including the piriformis and were tagged with #1 Ethibond for later repair. The joint capsule opened with posterior t rapdoor technique. The hip was surgically dislocated. Hohmann was placed around the lesser trochanter. A neck cutting guide was used to christina the neck with a Bovie and an oscillating saw was used complete the femoral neck cut. The femoral head was then removed and sized. We then turned our attention to the acetabulum. A Bovie was used to make a perforation in the anterior joint capsule and a pointed Hohmann was placed this was repeated in the 6 o'clock position in a wide point at home and was placed there. With a long handled knife the labral and pulmonary tissue were removed. We then began sequential reaming until the appropriate size was achieved. We then fit the acetabular shell in place with good ability and proceeded to place a posterior superior screw by drilling first measuring and inserting the screw. We then inserted a trial liner. And turned our attention back to the femur at this point a femoral elevator was used. As well as a pointed wide Hohmann around the lesser trochanter and a Hohmann to help retract the gluteus medius. A box chisel was used to remove excess lateral neck followed by a canal finder and a lateralizing reamer. This was followed by sequential broaches attention was made of the version within the canal. Once the final broach was seated we then trialed reduced the hip it was determined that a 132 degree neck angle with a -5 offset was the appropriate size. We did use muscle relaxation when tensioning the hip however she was significantly short preoperative Tadeo and lengthened her as much as we could without undue tension I did not want to have her unable to extend the hip. We did use EKG leads on contralateral knee And heel for palpation of leg length. we then checked ability with shuck testing as well as flexion and terminal rotation then proceeded with hip extension and checked leg lengths at the knees and heels. At this point trials were removed. A posterior lipped liner was inserted to the cup. The femoral stem was inserted. We re-trialed and then proceeded to impact the femoral head onto the Cortes taper. We then surgically reduce the hip check stability again and leg lengths and were satisfied. Betadine rinse was allowed to sit for 5 minutes while everyone changed their gloves. Thorough irrigation was performed. Followed by closure of the external rotators with #2 FiberWire followed by closure of gluteal fascia with #1 Ethibond. 0 Vicryl fat stitches and 2-0 Vicryl subcutaneous stitches and esme in the skin. Dressing was applied in the form of Xeroform 4 x 4 ABD Ioband and an abduction pillow was placed. Patient tolerated the procedure well there was no intraoperative complications all counts were correct and the patient was brought back to the PACU in stable condition
--- NOTE | 2019-02-25 10:10 | HP.PCM_ITS ---
History and Physical Date of Admission: 02/25/19 MR#: [id number] Acct: [id number] Name: PRESTON HALE Rep #: [id number] : 1965 Provider: Colton Myers DO Age/Sex: 53/F Location: [facility] [place].SMO Status: Signed Intake Intake Visit Reasons: Amb Documentation Allergies No Known Allergies Allergy (Verified 02/07/19 09:38) Medications cetirizine 10 mg capsule 10 mg PO DAILY 09/12/18 [History Confirmed 09/12/18] multivitamin tablet 1 tab PO DAILY 09/12/18 [History Confirmed 09/12/18] triamcinolone acetonide 55 mcg nasal spray aerosol 1 spray INTRANASAL DAILY 09/12/18 [History Confirmed 09/12/18] meloxicam 15 mg tablet 15 mg PO DAILY #30 tab 10/28/18 [Rx Confirmed 10/28/18] PFSH Family History Mother Diabetes Hypertension Father Cancer HPI Amb Documentation: Surgical H&P: Yes Details: Parts of this documentation were recorded by a scribe, this documentation accurately reflects the service provided and the decisions made by , Christelle Wolf 02/03/19 1500. PRESTON HALE is a 53 year old F here today for left hip pain. F/U after completing PT. Patient has had this hip pain for about 1 year. Patient states she had a hip x-ray completed in July of 2018. Has had PT states it was a little effective but not very much. Patient takes meloxicam. Denies any recent injury to the hip. Denies any RA, lupus inflammatory or connective tissue d/o. Patient was on halfway steroid when she had her first child during . States he most pain is left groin and radiates around to her buttock. States denies numbness or tingling but does get shooting pain that does go below the knee about mcc and leg. She does complain of a leg length discrepancy and wears a 1 inch heel lift on the left ROS Const Reports system reviewed and no additional complaints, except as docu Eyes Reports system reviewed and no additional complaints, except as docu ENT Reports system reviewed and no additional complaints, except as docu Card Reports system reviewed and no additional complaints, except as docu Resp Reports system reviewed and no additional complaints, except as docu GI Reports system reviewed and no additional complaints, except as docu Musc Reports system reviewed and no additional complaints, except as docu, Reports as per HPI Skin/Breast Reports system reviewed and no additional complaints, except as docu Neuro Yes system reviewed and no additional complaints, except as docu Psych Reports system reviewed and no additional complaints, except as docu Endo Reports system reviewed and no additional complaints, except as docu Grzegorz/Lymph Reports system reviewed and no additional complaints, except as docu Aller/Immun Reports system reviewed and no additional complaints, except as docu Ortho Exam Right Knee Skin/Wound: No swelling KNEE: prominent patella. Left Knee Skin/Wound: No swelling Examination: No med jt line tenderness, Yes Lat jt line tenderness, No Bernadine's Test Stability: NML: Anterior Drawer, NML: Lupe, NML: Posterior Drawer KNEE: prominent patella Lateral ligaments intact. Left Hip Skin/Wound: Yes CDI, No Ecchymosis, No soft tissue swelling, No Erythema Hip: Absent eccymosis, soft tissue swelling, erythema or TTP Greater Troch internal rotation @90 degree flexion: 8 degrees external rotation @90 degree extension: 65 degrees Special Tests: TTP Greater Troch Everton's Signs: no Overreaction Homans Sign: No HIP: 5/5 flex, add and abd. intact sensation to light touch no gross motor or sensory deficits no significant swelling in the leg palpable pedal pulse Supplemental Info 08/09/2018 left hip x-ray: Severe left hip OA [id number] large spurs superior and inferior there is some shortening compared to the account. Her lower lumbar spine is captured on the AP pelvis and there is degenerative disc disease at the lower level Assessment & Plan Problems 1. Primary osteoarthritis of left hip M16.12 Plan Patient has severe [id number] left hip arthritis and has failed extensive conservative treatment we did review surgical versus nonsurgical intervention including risk of bleeding infection nerve artery tissue damage need for further surgery continue pain postoperative stiffness 6 active postoperative course dislocation leg length discrepancy and postoperative restrictions. She does wish to proceed with elective left total hip arthroplasty we will schedule this today consent was signed she will call if she has any further questions or concerns Since patient has tried PT and Mobic her next steps would be to discuss AURE if she this pain is limiting her ADLs. Reviewed the pre-operative plans of a left AURE with the patient. Risks and benefits of the procedure were fully explained, including but not limited to infection, neurovascular injury, continued pain, arthritis, stiffness, need for further surgery, re-injury, DVT, PE, general risks of anesthesia, and loss of limb or life. The patient understands all the risks. Educated that this would be a press fit implants. Educated that there may be fx to surrounding bones which is not common. Patient educated that she will be in the hospital for 1-2 nights and receive IV ATBs and pain medications. Patient will be able to walk and stand on her left leg right away but will have limitations with bending. She may not bend more than 90 degrees. She will need to wear thigh high stockings for about 2 weeks post op. Patient would like to sign consent this day. PCP is Teresa Darby. Educated to stop Mobic 7 days prior to surgery. Patient may take 1000mg of Tylenol up to 4 times a day. Denies any clotting disorders, does not smoke. Patient may drive when she is not on Narcotics. Educated that she will need off for at least 6 weeks. Patient will have PT in hospital then will be on PT for about 8 weeks. Patient will need prophylactic ATBs prior to any dental work. Patient may shower at day 3 post-op Follow up 2 weeks and 6weeks and 1 year post op or sooner if pain, swelling, numbness or associated symptoms, or concerns develop. All questions answered. Patient in agreement of plan. Plan Detail Health Concerns Coding Level of Care Code Off vis,new,level 3 Diagnoses Primary osteoarthritis of left hip M16.12 02/10/19 1600 <Electronically signed by Colton Myers DO> Date Colton Myers DO I have re-examined the patient. There are no clinical changes since date of exam
[2019-02-25] MEDS: Ketorolac 30 MG/ML Syringe IV ×2 (11:00→21:59)
[2019-02-25] MEDS: Famotidine 20 MG Tablet PO (12:44)
[2019-02-25] MEDS: Senna/Docusate Sodium 1 Tablet 2 TABLET PO ×2 (12:44→21:59)
[2019-02-25] MEDS: Ensure Surgery 237 ML LIQUID PO ×2 (12:46→18:10)
[2019-02-25] MEDS: Acetaminophen 500 MG Tablet 1000 MG PO ×2 (14:25→21:59)
--- NOTE | 2019-02-25 16:41 | NURSING ---
Higgins cath removed as per order and pt's wish.
[2019-02-25] MEDS: oxyCODONE 5 MG Tablet 2.5 MG PO (19:52)
[2019-02-26] MEDS: Cefazolin 2 GM in 0.9% Normal Saline 100 ML IV (00:29)
[2019-02-26 02:00] VITALS: BP 114/63; PULSE 62; RESP 16; TEMP 36.9; O2SAT 97
[2019-02-26] MEDS: Acetaminophen 500 MG Tablet 1000 MG PO (04:56)
[2019-02-26] MEDS: oxyCODONE 5 MG Tablet 2.5 MG PO (04:57)
[2019-02-26 06:16] LABS: Hemoglobin 11.4 g/dl (12.0-15.0); Mean Corp Hgb Conc 32.6 g/gl (32-36); Mean Corpuscular Hgb 28.6 pg (27.0-32.0); Mean Corpuscular Volume 87.9 fL (81-99); Mean Platelet Vol. 10.8 fl (6.2-12.0); Platelet Count 228 K/mm3 (150-450); RBC Distribution Width CV 14.5 % (11.6-14.6); RBC Distribution Width SD 46.2 fl (35.1-43.9); Red Blood Count 3.98 M/mm3 (4.2-5.4)
[2019-02-26 06:18] LABS: Scan Indicated on CBC? Y/N NO
[2019-02-26] MEDS: 0.9% NaCl Peripheral Flush Adult/Peds IV (06:41)
[2019-02-26] MEDS: APIXABAN 2.5 MG TABLET PO (06:41)
[2019-02-26] MEDS: Ketorolac 30 MG/ML Syringe IV (06:41)
[2019-02-26 06:42] LABS: Anion Gap 8 (5-15); BUN 12 mg/dL (7-18); BUN/Creat Ratio 15.6 RATIO (10-20); Calcium,Total 8.3 mg/dL (8.5-10.1); Chloride 108 mmol/L (98-107); Creatinine, Serum 0.77 mg/dL (0.55-1.02); EST Glomerular Filtration Rate 84 mL/min (>60); Est Glom Filt Rate - Afr Amer 102 mL/min (>60); Glucose 101 mg/dL (74-106); Potassium 3.8 mmol/L (3.5-5.1); Sodium Level 141 mmol/L (136-145)
--- NOTE | 2019-02-26 07:19 | DCINST_ITS ---
Discharge Diet: No Restrictions Additional Activity Instructions:: Follow hip precautions as reviewed by physical therapist. Call your doctor if you observe: Fever of 101 or Higher, Shortness of breath, Chest pain Additional Instructions: May shower 72 hours after surgery. And recommend to do so daily at that point with warm soapy water running over incision. No tub baths or pools. Follow hip precautions. Apply ABD pad and silk tape over incision until there is no drainage for 2 consecutive days then may leave open to air Allergies/Adverse Reactions: Allergies No Known Allergies Allergy (Verified 02/25/19 06:07) Medications to take at Discharge cetirizine 10 mg capsule 10 mg PO DAILY 09/12/18 multivitamin tablet 1 tab PO DAILY 09/12/18 triamcinolone acetonide 55 mcg nasal spray aerosol 1 spray INTRANASAL DAILY 09/12/18 Naproxen Sodium [Aleve] 220 mg PO BID 02/18/19 Pseudoephedrine HCl [Suphedrin] 30 mg PO PRN PRN 02/18/19 Valerian Root Extract [Valerian] 150 mg PO QHS 02/18/19 Acetaminophen [Tylenol] 1,000 mg PO Q6H PRN PRN #50 tablet 02/26/19 Apixaban [Eliquis] 2.5 mg PO 0700,1900 21 Days #42 tablet 02/26/19 traMADol [Ultram] 50 - 100 mg PO Q6H PRN PRN 7 Days #60 tablet 02/26/19 The following prescriptions were given: Acetaminophen [Tylenol] 1,000 mg PO Q6H PRN PRN #50 tablet PRN Reason: Pain traMADol [Ultram] 50 - 100 mg PO Q6H PRN PRN 7 Days #60 tablet PRN Reason: Mod-Severe Pain (4-10/10) Apixaban [Eliquis] 2.5 mg PO 0700,1900 21 Days #42 tablet Primary Care Physician: Teresa Stephens MD [Primary Care Provider] - Test Results: Test results from this visit will be discussed in further detail at your follow- up appointment, if applicable. Please Follow Up With: Colton Myers DO - 2Weeks
--- NOTE | 2019-02-26 07:19 | PCM.DC.SUM ---
Discharge Date and Diagnosis Date of Admission: 02/25/19 Date of Discharge: 02/26/19 Hospital Course and Treatment Operations: total hip replacement Summary of Care Provided: The patient is a 54 year old F underwent left total hip arthroplasty on date of admission without any intraoperative complications. She did have significant shortening on the left side wearing a 1/2 inch heel lift on the left side. She has failed can conservative treatment wished to undergo the elective procedure. He underwent the procedure without any intraoperative complications did receive pre-and postoperative antibiotics which were discontinued within 23 hours postoperatively. She did receive trans-examined acid and her vital signs remained stable postoperatively as well as her hemoglobin and hematocrit and she did not require any blood transfusion. Seen by physical therapy did progress her ambulation she was started on both mechanical chemical DVT prophylaxis in the form of SCDs MEGHANA hose and Eliquis 2.5 mg twice daily for which she will continue for 3 weeks post hospital discharge. To be set up with home health care at home physical therapy will follow-up in the office in 2 weeks for staple removal wound check and conversion to outpatient physical therapy. Subjective: Patient seen and examined at bedside with her she is doing well her pain is controlled. He is urinating without issue no chest pain shortness of breath. She wishes to be discharged with Ultram and Tylenol. Dressing is clean dry and intact and she remains neurovascularly intact to the left lower extremity her compartments are soft and compressible - Physical Exam Vital Signs Temp Pulse Resp BP Pulse Ox 98.5 F 62 16 114/63 97 02/26/19 02:00 02/26/19 02:00 02/26/19 02:00 02/26/19 02:00 02/26/19 02:00 Oxygen Delivery Method Room Air Weight: 155 lb 13.869 oz Body Mass Index (BMI) 25.5 Intake and Output for Last 24 Hours 02/24/19 02/25/19 02/26/19 23:59 23:59 23:59 Intake Total 2538 / 2538 1917 / 1917 Output Total 880 / 880 3000 / 3000 Balance 1658 / 1658 -1083 / -1083 Laboratory Tests Past 24 Hrs 02/26/19 02/26/19 05:36 05:36 WBC 10.0 RBC 3.98 L Hgb 11.4 L Hct 35.0 L MCV 87.9 MCH 28.6 MCHC 32.6 RDW 14.5 RDW Differential 46.2 H Plt Count 228 MPV 10.8 Sodium 141 Potassium 3.8 Chloride 108 H Carbon Dioxide 25.0 Anion Gap 8 BUN 12 Creatinine 0.77 Estim Creat Clear Calc 76.90 Est GFR (MDRD) Af Amer 102 Est GFR (MDRD) Non-Af 84 BUN/Creatinine Ratio 15.6 Glucose 101 Calcium 8.3 L Discharge Diet: No Restrictions Additional Activity Instructions:: Follow hip precautions as reviewed by physical therapist. Call your doctor if you observe: Fever of 101 or Higher, Shortness of breath, Chest pain Home Medications: Medications to take at Discharge cetirizine 10 mg capsule 10 mg PO DAILY 09/12/18 multivitamin tablet 1 tab PO DAILY 09/12/18 triamcinolone acetonide 55 mcg nasal spray aerosol 1 spray INTRANASAL DAILY 09/12/18 Naproxen Sodium [Aleve] 220 mg PO BID 02/18/19 Pseudoephedrine HCl [Suphedrin] 30 mg PO PRN PRN 02/18/19 Valerian Root Extract [Valerian] 150 mg PO QHS 02/18/19 Acetaminophen [Tylenol] 1,000 mg PO Q6H PRN PRN #50 tablet 02/26/19 Apixaban [Eliquis] 2.5 mg PO 0700,1900 21 Days #42 tablet 02/26/19 traMADol [Ultram] 50 - 100 mg PO Q6H PRN PRN 7 Days #60 tablet 02/26/19 Following Prescrptions Were Given to Patient: Acetaminophen [Tylenol] 1,000 mg PO Q6H PRN PRN #50 tablet PRN Reason: Pain traMADol [Ultram] 50 - 100 mg PO Q6H PRN PRN 7 Days #60 tablet PRN Reason: Mod-Severe Pain (4-10/10) Apixaban [Eliquis] 2.5 mg PO 0700,1900 21 Days #42 tablet Primary Care Physician: Teresa Stephens MD [Primary Care Provider] - Please Follow Up With: Colton Myers DO - 2Weeks Additional Instructions: May shower 72 hours after surgery. And recommend to do so daily at that point with warm soapy water running over incision. No tub baths or pools. Follow hip precautions. Apply ABD pad and silk tape over incision until there is no drainage for 2 consecutive days then may leave open to air Medical Necessity - Tobacco Use Smoking Status: Former smoker Tobacco Use: Non-smoker Meaningful Use Info Meaningful Use Diagnoses (Choose all that apply): None applicable
[2019-02-26] MEDS: traMADol 50 MG Tablet PO (08:05)
[2019-02-26] MEDS: Famotidine 20 MG Tablet PO (08:05)
[2019-02-26 08:07] VITALS: BP 146/79; PULSE 64; RESP 18; TEMP 36.4; O2SAT 100
--- NOTE | 2019-02-26 10:10 | CASEMGMT ---
RN CM Face to Face with patient for initial transition planning/care coordination assessment. RN CM introduced self and role at [facility]. Patient lying in bed, alert and oriented. Patient willing to participate in assessment and is able to answer all questions appropriately. Care providers, pharmacy, and demographics verified. Patient wishes to discharge home with C for therapy. List of HHC provided to patient, patient would like [facility]. Referral made to [facility] and they are able to accept. Patient states she has no further needs or concerns at this time. CM to follow for discharge planning needs that may arise. PCP: Kta Specialists: jaz Myers Preferred [facility]acy: [facility] Insurance: [employer] Prescription Benefit: yes Living Will/HPOA: none LNOK: significant other Living Arrangements: Patient lives with significant other in 1 story home with 2 steps and railing to enter home. Transportation: sig other DME/HHC: Patient has walker, hip kit, and raised toilet. HHC setup with [facility] Disposition Plan: Patient to discharge home with HHC, family support, and follow-up plans in place. Claudia SUTHERLANDN, RN, CM
== END 2019-02-26 11:38 | disposition home or self-care (01) | DRG 470 ==
LOC: ACINP 05:44 → MS3 15:46
PROVIDERS: Admitting Provider Orthopaedic Surgery; Family Provider Family Medicine; PCP Family Medicine; Referring Provider Orthopaedic Surgery; Visit Provider Orthopaedic Surgery
PROC: 0SRB0JZ Replacement of Left Hip Joint with Synthetic Substitute, Open Approach (ICD-10-PCS; CPT 27130; principal; 2019-02-25 07:25)
DX: M16.12 Unilateral primary osteoarthritis, left hip (principal); M21.70 Unequal limb length (acquired), unspecified site; Z87.891 Personal history of nicotine dependence; Z79.01 Long term (current) use of anticoagulants
CPT/HCPCS: 73502; 80048; 85027; 87081; 97110; 97162; 97166; 97530; 97535; C1776; J7120; A4216; J2405

== ENCOUNTER → 2019-03-10 15:48 | Outpatient (CLI) | payer OTHER, SELFPAY ==
[2019-02-25 12:20] VITALS: BMI 25.5
--- NOTE | 2019-03-10 15:49 | RAD_ITS ---
STUDY: X-RAY - PELVIS AND LEFT HIP REASON FOR EXAM: Female, 54 years old. Postop TECHNIQUE: 3 views of the pelvis and hip. COMPARISON: February 25, 2019 FINDINGS: Left hip prosthesis is noted in anatomic alignment and position.. No evidence for acute fracture or subluxation RAD/HIP, UNI W/ Pelvis 2-3 Views IMPRESSION: Status post left hip prosthesis placement Electronically Signed: Zachary Salomon MD at 16:04 EDT , Service support ,
== END ==
PROVIDERS: Family Provider Family Medicine; PCP Family Medicine; Referring Provider Physician Assistant; Visit Provider Physician Assistant
DX: Z96.642 Presence of left artificial hip joint (principal)
CPT/HCPCS: 73502

== ENCOUNTER 2019-04-30 15:30 | Outpatient (RCR) | payer OTHER, SELFPAY ==
[2019-02-25 12:20] VITALS: BMI 25.5
--- NOTE | 2019-03-18 16:14 | HP.PTEVAL ---
Patient's Visit Information PRESTON HALE is a 54 year old F referred to Physical Therapy by WILL Powers with a diagnosis of L AURE. Date of Evaluation: 03/18/19 Physical Therapist: Eric Tilley PT, ATC - Visit Plan Frequency: 2-3x /Week Duration: 4-6 Weeks Plan: L LE stretching and strengthening, balance and proprio, core stab ex's, nustep, HEP - Subjective Findings: DOS: 02/25/19. Pt reports she had a AURE posterior approach performed. Pt reports she had pain for 1-2 years prior to the surgery. Pt reports she is glad she had the surgery at this time. Pt reports her pain still is constant aand elevates to a high level, but overall she is improving each and every day. Pt reports she has no tingling or numbness in L LE. Pt reports sig difficulty with sleep at this time secondary to pain. Pt has stairs at this time and must negotiate them one step at a time. 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 Pt reports a bad fall 20 years ago that may have been what caused per hip degeneration. 3/10 pain at rest, 8/10 at worst (trying to roll over in bed). - Pain L hip Pain Intensity (Out of 10): 3 Pain Intensity Range: 8 - Objective Neuro: B LE sensation is WNL to light touch. B patellar reflex= 2/3. Observation: Pt reports her incision is healed. Eber out. MMT: R LE is grossly 5/5 throughout. L LE is grossly 3+/5 and painful with all testing. ROM: B LE's are WFL at this time. Gait: Pt is able to ambulate 340' until needing to sit down and rest. Balance: - Goals Goal 1:: Decrease L hip pain x 50% to aid with sleep Goal Time Frame: 4-6 Weeks Goal 2:: Increase L LE strength x 1 grade to aid with stair negotiation Goal Time Frame: 4-6 Weeks Goal 3:: Pt will be able to ambulate greater than 1000' to aid with community ambulation Goal Time Frame: 4-6 Weeks Goal 4:: I with HEP Goal Time Frame: 4-6 Weeks - Rehabilitation Potential Physical Therapy Diagnosis: L hip pain, weakness, and limited ability to ambulate secondary to L AURE Rehabilitation Potential: Good - Anticipated Interventions Patient/Client Instruction: Educate patient on: Condition, Plan of Care For the Purpose of:: To improve self management Therapeutic Exercise to Include: Strength training, Endurance training, Balance training, Postural training, Flexibilty training, Gait and locomotor training, Active ROM, Dynamic Lumbar Stabilization For the Purpose of:: To decrease pain, To improve muscle performance and motor function, To improve ability of physical actions for home/community/work/leisure Cryotherapy (ice pack, ice massage): Yes For the Purpose of:: To decrease pain Thank you for the opportunity to evaluate your patient. For Medicare and Medicare HMO plans, please review the plan of care and approve it. It will need to be FAXED BACK to us at [phone] for Medicare purposes. For Medicare only, by signing this I certify the plan of care. Please let me know if there are questions or concerns regarding this plan of care. Physician Signature: Date:
--- NOTE | 2019-04-30 16:04 | HP.PTDCSUM ---
HP - PT D/C Summary It has been my pleasure to treat PRESTON HALE under orders from WILL Powers, for the diagnosis of L AURE for a total of 13 visit(s). Discharge Date: Please see the following information for a summary of their discharge status. - Subjective Subjective: Pt ready for discharge - Pain L hip Pain Intensity (Out of 10): 0 - Overall Improvement % Improvement: 90 - Objective Objective/Function: L hip pain 0/10. L LE MMT 5/5 throughout. Pt is able to ambulate greater than 1000' without difficulty. I with HEP. Rx goals achieved. - Goals Goal 1:: Decrease L hip pain x 50% to aid with sleep Goal Progress: Goal Met Goal 2:: Increase L LE strength x 1 grade to aid with stair negotiation Goal Progress: Goal Met Goal 3:: Pt will be able to ambulate greater than 1000' to aid with community ambulation Goal Progress: Goal Met Goal 4:: I with HEP Goal Progress: Goal Met - Plan Plan: Discharge - D/C Information If there are questions or concerns regarding this patient's physical therapy, please feel free to call me at [phone]. Thank you for the referral of this patient. Sincerely, Eric Tilley, PT, ATC
== END 2019-04-30 19:00 | disposition home or self-care (01) ==
LOC: PT 15:30
PROVIDERS: Family Provider Family Medicine; PCP Family Medicine; Referring Provider Physician Assistant; Visit Provider Physician Assistant
DX: Z96.642 Presence of left artificial hip joint (principal)
CPT/HCPCS: 97110; 97161; 97530

== ENCOUNTER → 2019-09-11 08:00 | Outpatient (CLI) | payer OTHER, SELFPAY ==
[2019-04-16 14:48] VITALS: BMI 25.5
[2019-09-11 13:07] LABS: AST(SGOT) 24 U/L (15-37); Alanine Aminotransfer ALT/SGPT 27 U/L (13-56); Albumin, Serum 3.8 g/dL (3.2-5.0); Alkaline Phosphatase 52 U/L (45-117); Anion Gap 3 (5-15); BUN 19 mg/dL (7-18); BUN/Creat Ratio 21.3 RATIO (10-20); Calcium,Total 8.6 mg/dL (8.5-10.1); Chloride 106 mmol/L (98-107); Cholesterol 187 mg/dL (200); Creatinine, Serum 0.89 mg/dL (0.55-1.02); EST Glomerular Filtration Rate 71 mL/min (>60); Est Glom Filt Rate - Afr Amer 85 mL/min (>60); Globulin 3.7 g/dL (2.2-4.2); Glucose 81 mg/dL (74-106); High Density Lipoprotein 82 mg/dL; Potassium 4.2 mmol/L (3.5-5.1); Protein, Total 7.5 g/dL (6.4-8.2); Sodium Level 140 mmol/L (136-145); Triglycerides 94 mg/dL; Very Low Density Lipoprotein 19 mg/dL (5-40)
== END ==
PROVIDERS: Family Provider Family Medicine; PCP Family Medicine; Visit Provider Family Medicine
DX: Z00.00 Encounter for general adult medical examination without abnormal findings (principal); J30.9 Allergic rhinitis, unspecified
CPT/HCPCS: 36415; 80053; 80061

== ENCOUNTER 2020-12-09 12:00 | Outpatient (RCR) | payer OTHER, SELFPAY ==
--- NOTE | 2021-04-18 12:55 | HP.PTDCSUM ---
It has been my pleasure to treat PRESTON HALE referred by Dr. Colton Myers DO, with the diagnosis of L hip bursitis for a total of 6 visit(s). Discharge Date: Please see the following information for a summary of their discharge status. Subjective: Pt reports she feels much better and wants to continue I with ex's L hip bursitis Pain Intensity (Out of 10): 1 % Improvement: 80 Objective/Function: Pt notes pain is sig better at 1/10. L LE flexibility is now WNL. Pt is I with HEP. Rx goals achieved Goal 1:: Decrease L hip pain x 50% to aid with sleep Goal Progress: Goal Met Goal 2:: Increase L LE flexibility x 1 grade to aid with decreasing pain Goal Progress: Goal Met Goal 3:: I with HEP Goal Progress: Goal Met Plan: Discharge If there are questions or concerns regarding this patient's physical therapy, please feel free to call me at [phone]. Thank you for the referral of this patient. Sincerely, Eric Tilley, PT, ATC
== END 2020-12-09 19:00 | disposition home or self-care (01) ==
LOC: PT 12:00
PROVIDERS: PCP Family Medicine; Referring Provider Orthopaedic Surgery; Visit Provider Orthopaedic Surgery
DX: M70.62 Trochanteric bursitis, left hip (principal)
CPT/HCPCS: 97110; 97161; 97164

== ENCOUNTER → 2022-05-01 | Outpatient (CLI) | payer OTHER, SELFPAY ==
[2022-05-01 15:46] LABS: BUN 22 mg/dL (7-18); EST Glomerular Filtration Rate 80 mL/min (>60); Est Glom Filt Rate - Afr Amer 96 mL/min (>60)
== END | disposition home or self-care (01) ==
LOC: MTLAB 11:33
PROVIDERS: PCP Family Medicine; Referring Provider Orthopaedic Surgery; Visit Provider Orthopaedic Surgery
DX: Z79.1 Long term (current) use of non-steroidal anti-inflammatories (NSAID) (principal)
CPT/HCPCS: 36415; 82565; 84520

== ENCOUNTER → 2022-10-18 | Outpatient (CLI) | payer BC, SELFPAY ==
--- NOTE | 2022-10-18 07:55 | CT_ITS ---
PROCEDURE: CT RIGHT KNEE WITHOUT CONTRAST REASON FOR EXAM: Female, 57 years old. Preoperative planning for the MakoPlasty Robotic knee surgery. Knee pain. TECHNIQUE: Transaxial CT of the hip, knee and ankle were obtained. Coronal and sagittal reconstruction images of the knee were provided. Individualized dose optimization techniques were used for this CT. COMPARISON: Right hip x-rays dated December 26, 2021. FINDINGS: Standard protocol for the preoperative planning for the MakoPlasty robotic knee surgery was performed. Left total hip arthroplasty in anatomic alignment without complications. Severe arthrosis of the right hip and mild arthrosis of the knees. CT/Extremity Lower without Contra IMPRESSION: Preoperative MakoPlasty Robotic knee surgical CT evaluation with findings as described above. Electronically Signed: Riky Rondon, at 14:14 EST ,
== END | disposition home or self-care (01) ==
LOC: CT 07:53
PROVIDERS: PCP Nurse Practitioner; Referring Provider Orthopaedic Surgery; Visit Provider Orthopaedic Surgery
DX: M16.11 Unilateral primary osteoarthritis, right hip (principal)
CPT/HCPCS: 73700

== ENCOUNTER 2022-10-24 05:43 | Day surgery (SDC) | payer BC, SELFPAY ==
--- NOTE | 2022-10-16 07:38 | EKG12_ITS ---
Test Reason : PRE-OP Blood Pressure : / mmHG Vent. Rate : 060 BPM Atrial Rate : 060 BPM P-R Int : 162 ms QRS Dur : 074 ms QT Int : 386 ms P-R-T Axes : 067 -10 018 degrees QTc Int : 386 ms Normal sinus rhythm Normal ECG Confirmed by DREW REAVES, DENILSON ([id number]), editor map EDWIN CALVIN ([id number]) on 10/16/2022 10:59:55 AM Referred By: MIMA Confirmed By:DENILSON RUSSELL MD
[2022-10-16 08:43] LABS: Absolute Lymphocyte Count 2.87 X10^3/uL (0.83-4.51); Basophil# 0.05 X10^3/uL; Basophil% 0.7 % (0-1); Eosinophils% 1.3 % (0-5); Hematocrit 38.3 % (37-47); Hemoglobin 12.4 g/dL (12.0-15.0); Lymphocyte # 2.87 X10^3/ul (0.83-4.51); Lymphocyte % 37.6 % (19-41); Mean Corp Hgb Conc 32.4 g/dL (32-36); Mean Corpuscular Hgb 29.2 pg (27.0-32.0); Mean Corpuscular Volume 90.1 fL (81-99); Mean Platelet Vol. 10.9 fl (6.2-12.0); Monocyte# 0.59 X10^3/uL; Monocyte% 7.7 % (0-10); NRBC Flagged by Analyzer 0 % (0-5); Neutrophil % 52.4 % (47-70); Platelet Count 291 K/mm3 (150-450); RBC Distribution Width CV 14.3 % (11.6-14.6); RBC Distribution Width SD 47.4 fl (35.1-43.9); Red Blood Count 4.25 M/mm3 (4.2-5.4); White Blood Count 7.6 K/mm3 (4.4-11.0)
[2022-10-16 08:52] LABS: Prothrombin Time (Protime)PT. 13.1 SECONDS (11.7-14.9)
[2022-10-16 08:53] LABS: Partial Thromboplast Time 30.7 Seconds (24.1-36.2)
[2022-10-16 09:04] LABS: Hemoglobin A1c 5.5 % (3.8-5.6)
[2022-10-16 09:05] LABS: Anion Gap 6 (5-15); BUN 21 mg/dL (7-18); BUN/Creat Ratio 25.2 RATIO (10-20); Calcium,Total 8.9 mg/dL (8.5-10.1); Chloride 109 mmol/L (98-107); Creatinine, Serum 0.83 mg/dL (0.55-1.02); EST Glomerular Filtration Rate 76 mL/min (>60); Est Glom Filt Rate - Afr Amer 91 mL/min (>60); Glucose 106 mg/dL (74-106); Magnesium 2.4 mg/dL (1.6-2.6); Potassium 4.2 mmol/L (3.5-5.1); Sodium Level 140 mmol/L (136-145)
[2022-10-18 20:55] LABS: Fructosamine 242 umol/L (0-285)
[2022-10-24] VITALS (8 sets, daily range): BP systolic 102–129; BP diastolic 51–98; PULSE 54–74; RESP 13–21; TEMP 36.2–36.8; O2SAT 97–100; BMI 28.8
--- NOTE | 2022-10-24 | HIP_PTH ---
PATIENT: PRESTON HALE LOC: [facility] [place] U#:[id number] AGE/SX: 57/F ROOM: RE10/24/[address]: Dr. Colton Myers DO : 1965 BED: DIS: 10/24/2022 SPEC #: [id number] RECD: 10/24/22 11:30 STATUS: ROME RELisa #: [id number] JONNATHAN: 10/24/22 00:[address]: Colton Myers DEPT: SURGICAL PATHOLOGY RECD BY: Philip Hale ENTERED: 10/24/22 11:30 SP TYPE: TOTAL HIP OTHR DR: Katerin Edwards, LASHELL Tissues: Hip, NOS Procedures: Decalcification bone/plaque Surgery Specimen Level IV HEADER OPERATION: ERAS, total hip replacement robotic arm assist PRE-OP DIAGNOSIS: Degenerative joint disease of right hip TISSUE SUBMITTED: Right femoral head MICROSCOPIC DIAGNOSIS Right femoral head, total hip replacement/resection: Femoral head with degenerative osteoarthritic changes. ANIBAL:lindy 10/27/2022 MICROSCOPIC DESCRIPTION Slides are reviewed. GROSS DESCRIPTION Received is one container labeled with the patient's name and designated right femoral head. The specimen consists of a deformed banks femoral head measuring 5 x 5 x 4.5 cm. The portion of femoral neck measures up to 1 cm in length. The soft tissue entirely consists of bone reamings measuring in aggregate 7 x 7 x 2 cm. The articular surface displays prominent osteophyte formation, eburnation and bone erosion. Program Director Group Work sections are submitted in two cassettes after decalcification as follows: 1??bone reamings, 2 - femoral head. / ANIBAL:lindy 10/24/2022 TC:5 CPT: 10646, 27634
[2022-10-24] MEDS: Magnesium 1 GM over 15 mins IV (06:33)
[2022-10-24] MEDS: Lactated Ringers 1,000 ML 999 ML IV (06:33)
[2022-10-24] MEDS: Gabapentin 600 MG Tablet PO (06:34)
[2022-10-24] MEDS: Acetaminophen 500 MG Tablet 1000 MG PO (06:34)
[2022-10-24] MEDS: Celecoxib 200 MG Capsule 400 MG PO (06:34)
[2022-10-24] MEDS: Scopolamine 1mg/72hr Patch 1 PATCH TD (06:36)
[2022-10-24 06:46] LABS: Bedside Glucose 95 mg/dL (74-106)
--- NOTE | 2022-10-24 07:05 | HP.PCM_ITS ---
History and Physical Date of Admission: 10/24/22 [facility] [address] [place] [address] OFFICE VISIT Date of Service:? 09/27/22 MR#: [id number] Acct: [id number] Name:PRESTON RASMUSSEN Rep #: [id number] : 1965 ? ? Provider: Dr. Colton Myers, DO Age/Sex:? 57/F ? ? Location: [facility] Status: Signed Intake Vital Signs ? 09/27/2307:33 Height 5 ft 5 in Weight: 176 lb BMI 29.2 Intake Visit Reasons:?RIGHT HIP Chief Complaint: right hip Accompanied by: Self Is patient in pain?: Yes Pain scale (1-10): 8 Allergies No Known Allergies Allergy (Verified 12/26/21 08:25) Medications multivitamin 1 tab PO DAILY supplement 09/12/18 [History Confirmed 09/27/22] melatonin 5 mg capsule 5 mg PO QHS PRN 12/26/21 [History Confirmed 09/27/22] meloxicam 15 mg tablet (Mobic) 15 mg PO DAILY #30 tabs 05/17/22 [Rx Confirmed 09/27/22] esomeprazole magnesium 20 mg capsule,delayed release 20 mg PO DAILY 09/27/22 [History Confirmed 09/27/22] lisinopril 10 mg tablet 10 mg PO 09/27/22 [History Confirmed 09/27/22] PFSH Medical History? Degenerative joint disease of right hip Right hip pain Surgical History? History of nasal surgery History of total hip replacement Hx of tubal ligation Family History? Mother Diabetes HypertensionFather Cancer Social History? Smoking Status:? Former smoker HPI RIGHT HIP Details: Parts of this documentation were recorded by a scribe, this documentation accu rately reflects the service provided and the decisions made by me, Dr. Colton Myers, 09/27/22 08. PRESTON HALE is a 57 year old F here today for? right hip pain that she has been having for about 1 year. She states that the pain has became more severe over the last 2 months. Denies any new injuries. She states that she has right groin pain along with lateral sided hip pain and pain down the anterior thigh to the knee. She states that she is ready to set surgery up for a right AURE. ? shedenies numbness, tingling or other associated symptoms. She has increased pain with walking. She has an antalgic gait d/t her pain. I did her left total hip arthroplasty and she is happy with it without complaints . Ortho Exam General General: Yes no acute distress Neurologic: Yes alert and Yes oriented x3 Psychologic: Yes reasonable and appropriate Right Hip Skin: Yes CDI, No Ecchymosis, No soft tissue swelling and No Erythema Homans Sign: No HIP: 0 internal rotation 2 external rotation intact sensation to light touch No gross motor or sensory deficits to the right lower extremity no concerning skin lesions around the hip Supplemental Info 09/27/2022 x-ray right hip: Advanced hip arthrosis with collapse of the femoral head and shortening. 05/01/2022 x-ray right knee: Preserved joint space no acute findings Coding Level of Care Code Off vis,est,level 3 Diagnoses Degenerative joint disease of right hip? M16.11 Assessment and Plan Assessment and Plan (1) Degenerative joint disease of right hip: ?Status:?Acute ? ? ? Orders: Orders HIP, UNI W/ Pelvis 2-3 Views Today M25.551 - Pain in right hip ? Plan Patient educated that she does have severe DJD of the right hip. Treatment options are PT or AURE. She has tried PT and she has been taking Meloxicam and Tylenol. Reviewed the pre-operative plans with the patient. Risks and benefits of the procedure were fully explained, including but not limited to infection, neurovascular injury, continued pain, arthritis, stiffness, need for further surgery, re-injury, DVT, PE, general risks of anesthesia, and loss of limb or life. The patient understands all the risks and does wish to proceed with written consent for right AURE.?Risks, benefits and alternatives of surgery reviewed including but not limited to bleeding, infection, nerve, foot drop, artery and/or tissue damage, fracture, VTE, leg length discrepancy, dislocation, need for hip precautions, continued pain and expected post-operative course. Will need medial clearance. Do not take Ibuprofen or aleve or meloxicam 7 days prior to surgery. Follow up 2 weeks post op or sooner if pain, swelling, numbness or associated symptoms, or concerns develop.? All questions answered. Patient in agreement of plan. Tentative surgery date 10/24/2022 09/27/22 1139 <Electronically signed by Colton Myers DO> Date Colton Myers DO Cosigner Signature: Date (if applicable) ? CC: ? ~I have examined the patient and the H&P has been reviewed. There are no clinical changes since date of exam.
[2022-10-24] MEDS: Cefazolin 2 GM in 0.9% Normal Saline 100 ML IV (07:30)
[2022-10-24] MEDS: Lactated Ringers 1,000 ML 75 ML IV ×2 (07:34→10:00)
[2022-10-24] MEDS: dexAMETHasone 10 MG/ML Vial IV (07:48)
--- NOTE | 2022-10-24 10:12 | RAD_ITS ---
STUDY: XR Hip Unilateral with Pelvis when performed; 2-3 Views 10/24/2022 10:18 AM REASON FOR EXAM: Female, 57 years old. post op -- in PACU Pain TECHNIQUE: XR Hip Unilateral with Pelvis when performed; 2-3 Views COMPARISON: None FINDINGS: There is no fracture or dislocation. There is anatomic alignment. The soft tissue planes are preserved. Total hip arthroplasty. There is an air-fluid level seen in the operative site. Joint space is preserved. Subcutaneous air is noted. RAD/Hip Min 2 Views (Portable) IMPRESSION: Successful total hip arthroplasty. Electronically Signed: Eric Emerson MD at 19:17 EST Reading Location ID and State: [facility] / [place] , Service support ,
--- NOTE | 2022-10-24 10:14 | PCM.OP.BLANK ---
Operative Report Date of Procedure: 10/24/22 Preoperative diagnosis: Right hip DJD Postoperative diagnosis: Same Procedure: CT-guided Makoplasty assisted right total hip arthroplasty Implants: [place] Accolade II stem size 5, 127 degree neck angle +2.5 neck length 52 mm Trident II acetabular shell with 25 mm cancellous screw 36 mm ceramic head, 10 degree Trident X3 polyethylene insert. Anesthesia: General EBL: 350 cc Complications: None Condition: Stable to PACU Indication for procedure: This is a 57-year-old female who has had long-standing arthrosis of the hip who has failed conservative treatment and wished to undergo total hip arthroplasty. She did have significant shortening preoperatively. we did discuss operative versus nonoperative intervention including risks of bleeding, infection , nerve artery tissue damage, need for further surgery, fracture, leg length discrepancy dislocation blood clot and need for postoperative physical therapy and postoperative expectations. An informed consent was signed. Procedure: Patient was met in the preoperative holding area once again the operative extremity was identified by both patient and physician and was marked. Patient was met by anesthesia . Anesthesia was started. patient was then positioned in the lateral decubitus position on a well-padded pegboard with an axillary roll. All bony prominences were checked and padded. The patient was prepped and draped in the usual sterile fashion. A timeout was called to ensure the proper patient procedure and extremity were being contemplated. Anatomic landmarks were palpated and marked for a standard posterior lateral approach. Prior to this the ASIS was palpated and 3 fingerbreadths proximal to this 3 pins were placed at a 45 degree angle into the iliac crest with good purchase, stab incisions were made with a 15 blade into the skin prior to placement. The Makoplasty array was then secured. A 10 blade scalpel was used to make a posterior incision through the skin and subcutaneous tissue. retractors were used and electrocautery was used to maintain meticulous hemostasis and dissect full-thickness flaps until the gluteal fascia was reached. The gluteal fascia was incised in line with the gluteal fibers. The bursal tissue was then freed from the underside and a Charnley retractor was placed. The femoral trochanteric checkpoint was placed and leg length was assessed using the trochanteric checkpoint and an EKG lead that was placed on the knee prior to prepping the leg .the fat pad was then elevated off of the external rotators with electrocautery and the external rotators were dissected off of the greater trochanter including the piriformis and were tagged with #1 Ethibond for later repair. The joint capsule opened with posterior trapdoor technique. The hip was surgically dislocated. The measurement on the preoperative CT from the top of the lesser trochanter to the femoral neck cut was marked Hohmann was placed around the lesser trochanter. A neck cutting guide was used to christina the neck with a Bovie and an oscillating saw was used complete the femoral neck cut. The femoral head was then removed and sized. We then turned our attention to the acetabulum. A Bovie was used to make a perforation in the anterior joint capsule and a Dockery retractor was placed this was repeated in the 6 o'clock position and a wide kenneth was placed there. With a long handled knife the labral and pulvinar tissue were removed. We then registered the acetabulum with the pointing array and confirmed our landmarks. Once the socket was thoroughly prepared and labral tissue and pulvinar was removed we single reamed with the robotic arm. We then used the robotic arm to position the acetabular implant and impacted it into place under robotic guidance. We then proceeded to place a posterior superior screw by drilling first measuring and inserting the screw. We then inserted a trial liner. And turned our attention back to the femur at this point a femoral elevator was used. As well as a pointed wide Hohmann around the lesser trochanter and a Hohmann to help retract the gluteus medius. A box chisel was used to remove excess lateral neck followed by a canal finder and a lateralizing reamer. This was followed by sequential broaches. Attention was made of the version within the canal based on preoperative templating. Once the final broach was seated we then trialed reduced the hip it was determined that a 127 degree neck angle with a +2.5 neck length was the appropriate size. We then checked stability with shuck testing as well as flexion and internal rotation. then proceeded with hip extension and checked leg lengths at the knees and heels as well as with the trochanteric checkpoint and knee EKG lead. At this point trials were removed. A liner was inserted to the cup. The femoral stem was inserted. We re-trialed and then proceeded to impact the femoral head onto the Cortes taper. We then surgically reduce the hip check stability again and leg lengths and were satisfied. Betadine rinse was allowed to sit for 5 minutes while everyone changed their gloves. Thorough irrigation was performed. Followed by closure of the external rotators with #2 FiberWire followed by closure of gluteal fascia with #1 Ethibond. 0 Vicryl fat stitches and 2-0 Vicryl subcutaneous stitches and esme in the skin. [place] were placed in the skin pin sites over the iliac crest and dressed with a Mepilex dressing. The main incision was dressed with a Mepilex ag dressing and an abduction pillow was placed. Patient tolerated the procedure well there was no intraoperative complications all counts were correct and the patient was brought back to the PACU in stable condition
--- NOTE | 2022-10-24 10:16 | DCINST_ITS ---
Discharge Instructions Diet Discharge Diet: No restrictions Activity Weight Bearing Status: Full weight bearing Dressing / Incision Call your doctor if you observe: Shortness of breath and Chest pain Additional Dressing/Incision Instructions:: Do not shower 72hrs. Begin daily showering warm water antibacterial soap postop day #3( 72hrs Post-operatively) and then daily. Leave the dressing on for 72 hours postoperatively then may remove prior to first shower and change dressing daily after this until no drainage for 2 consecutive days then may leave open to air. Follow hip precautions that were reviewed in hospital. Wear compression stockings, may remove at night. Start physical therapy as directed in hospital. Follow prescriptions instructions do not take any other pain medication or differ dosing without consulting your physician. Do not take oral NSAIDs until blood thinner has been completed , then may begin the day after completion if needed . Call Dr. Myers's office with any concerns. Follow Up Care Please Follow Up With: Colton Myers DO When: 2 weeks Test Results: Test results from this visit will be discussed in further detail at your follow- up appointment, if applicable. Discharge Plan Admission Primary Reason for Your Visit: Right total hip arthroplasty Attending Provider: Colton Myers Primary Care Provider: Katerin Emanuel NP Discharge Orders/Prescriptions Prescriptions: New acetaminophen [acetaminophen] 500 mg tablet 1,000 mg PO Q6H PRN Qty: 100 0RF cephalexin [cephalexin] 500 mg capsule 1,000 mg PO Q8 Qty: 4 0RF Rx Instructions: take 2 tabs at 9:00 pm and 2 tabs after 5 am when you wake up Eliquis 2.5 mg tablet 2.5 mg PO BID Qty: 42 0RF Rx Instructions: Begin morning after surgery oxycodone 5 mg tablet 5 mg PO Q4H PRN (Reason: pain) 7 Days Qty: 60 0RF Continued multivitamin tablet 1 tab PO DAILY melatonin 5 mg capsule 5 mg PO QHS PRN (Reason: Sleep) lisinopril 10 mg tablet 10 mg PO DAILY Discontinued meloxicam [Mobic] 15 mg tablet 15 mg PO DAILY Qty: 30 1RF No Action acetaminophen [Tylenol] 325 mg Tablet 650 mg PO Q6H PRN (Reason: Pain) Referrals / Follow Up: Katerin Emanuel [employer]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
[2022-10-24] MEDS: Cefazolin 1 GM/50 ML BAG IV (11:12)
== END 2022-10-24 14:53 | disposition home or self-care (01) ==
LOC: SDC 05:45 → AC 05:46
PROVIDERS: Anesthesiology; PCP Nurse Practitioner; Referring Provider Orthopaedic Surgery; Visit Provider Orthopaedic Surgery
PROC: 8E0Y0CZ Robotic Assisted Procedure of Lower Extremity, Open Approach (ICD-10-PCS; CPT 27130; principal; 2022-10-24 07:00)
DX: M16.11 Unilateral primary osteoarthritis, right hip (principal); I10 Essential (primary) hypertension; Z96.642 Presence of left artificial hip joint; Z79.899 Other long term (current) drug therapy; Z87.891 Personal history of nicotine dependence
CPT/HCPCS: 27130; S2900; 01214; 36415; 73502; 80048; 82962; 82985; 83036; 83735; 85025; 85610; 85730; 86850; 86900; 86901; 87077; 87081; 88305; 88311; 93005; 97162; C1776; J7120; J2405; J3475

== ENCOUNTER 2023-01-15 17:00 | Outpatient (RCR) | payer BC, SELFPAY ==
--- NOTE | 2022-10-30 09:31 | HP.PTEVAL ---
Patient's Visit Information PRESTON HALE is a 57 year old F referred to Physical Therapy by Dr. Colton Myers DO with a diagnosis of Right THR. Date of Evaluation: 10/30/22 Physical Therapist: Laura Santiago DPT - Visit Plan Frequency: 2-3x /Week Duration: 4 Weeks Plan: Right THR 10/24/22- focus on LE and core strength/stabilization and functional mobility. HEP Given IE: SLR, weight shift, Hip add in supine with ball, Hip fall out gentle and within comfortable ROM - Subjective Right THR 10/24/[address] Newell- she went straight home. She lives in a single story home with 2 small stairs to enter- no issues getting in/out- does have 3 boys at home that can help. She used a walker to start but is now mostly on the cane. 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 Worst: 07/03. Agg: overdoing it Eases: pain medication and ice. Best: 3-01/01. Pain is located in the outside of the hip and down the quad- but does radiate to the ankle- describes the pain as deep and intense pain. She is sleeping in a bed- disturbed- she is uncomfortable she can only sleep on her back which is not her favorite position- she is normally a side sleeper- only gets a couple of hours then has to move and get comfortable again. No N/T in the right LE. No loss or change in bowel/bladder. She had her left hip done in 2019 and saw Eric for PT- she did great. Goals: hike and get on the TM. She is normally pretty active- she has a workout reg but wasn't on it due to the pain in the hip. PMHx/Meds: no changes since surgery at the hospital. - Objective Posture: FH, RS- can correct with verbal cues but does not maintain. Gait: antalgic- decreased stance on the right LE with foot flat contact and straight cane. SLS: weight shifting- increased discomfort. HR/TR: able with UE A but reports increased discomfort. Stairs: asc 8 recip with 1 HR and straight cane- desc non recip. Incision: pt report no drainage- bandage is covering (educated on s/s of infection and to call MD if concerns). Palpation: tender along incision and lateral hip. ROM: WFL in all planes with precautions of posterior hip. Strength: Core: fair, Hip: SLR: unable without mod A, Extn: 19.8 lbs, Abd/Add: 4/5, Knee: 4+/5, Ankle: 5/5. Flex: HS: moderate Gastroc: moderate - Balance/Special Test Scores Lower Extremity Functional Score: 9 WOMAC Total Score: 80 WOMAC Percentatge: 16.6700 - Goals Goal 1:: Patient will be I with HEP and progression Goal Time Frame: 4-6 Weeks Goal 2:: Patient will ambulate >300 feet with a normalized gait pattern and no AD Goal Time Frame: 4-6 Weeks Goal 3:: Patient will asc/desc 8 recip with no HR Goal Time Frame: 4-6 Weeks Goal 4:: Patient will report 80% improvement Goal Time Frame: 4-6 Weeks - Rehabilitation Potential Physical Therapy Diagnosis: Patient presents with hypomobility- she has decreased LE and core strength/stabilization, ROM, flex and muscular endurance secondary s/p right THR- leading to decreased participation in ADL's. - Anticipated Interventions Patient/Client Instruction: Educate patient on: Benefits of Fitness Program Therapeutic Exercise to Include: Strength training, Endurance training, Balance training, Coordination, Agility training, Body mechanics, Postural training, Flexibilty training, Gait and locomotor training, Neuromotor development, Dynamic Lumbar Stabilization, Scapular Strength/Stabilization TENS: Yes Cryotherapy (ice pack, ice massage): Yes Thermo therapy (hot pack): Yes Ultrasound (thermal/non thermal): No Thank you for the opportunity to evaluate your patient. For Medicare and Medicare HMO plans, please review the plan of care and approve it. It will need to be FAXED BACK to us at [phone] for Medicare purposes. For Medicare only, by signing this I certify the plan of care. Please let me know if there are questions or concerns regarding this plan of care. Physician Signature: Date:
--- NOTE | 2022-12-14 17:02 | HP.PTREVAL ---
Dr. Colton Myers, DO, It has been my pleasure to treat PRESTON HALE over the last 13 visits for Right THR 10/24/22. Please see the progress note below for an update on the physical therapy plan of care! Subjective: Patient reports that she is not having anymore before pain but is still having healing pains. The pain is activity related. Worst: 3/10 - normally a 1-2/10- more achy- pain is located in the groin with lots of ambulation posterior pain with getting up from sitting. She feels that she would like to continue therapy. She feels that she still needs strength. She feels huge improvement but just not there yet. Objective/Function: Posture: FH, RS- can correct with verbal cues but does not maintain. Gait: slightly antalgic- no AD- does have mild decreased stance on the right LE. SLS: 8 sec with mild increase in sway. HR/TR: able with UE A. Observation: unable to touch floor between hands- can get hands to knees- precautions have been lifted Palpation: not tender Strength: Core: fair, Hip: Flexion: 18.9 Extn: 28.9 lbs, Abd/Add: 4+/5, Knee: 5/5, Ankle: 5/5. Flex: HS: moderate Gastroc: moderate Plan Plan: 12/14/22: Continue with POC 2x a week for an additional 4 weeks- continue to progress towards current goals. Right THR 10/24/22- focus on LE and core strength/stabilization and functional mobility Balance/Gait/Functional tests - Balance/Special Test Scores Lower Extremity Functional Score: 9 WOMAC Total Score: 30 WOMAC Percentage: 68.7500 Goals Goal 1:: Patient will be I with HEP and progression Goal Time Frame: 4-6 Weeks Goal Progress: Progressing Goal 2:: Patient will ambulate >300 feet with a normalized gait pattern and no AD Goal Time Frame: 4-6 Weeks Goal Progress: Progressing Goal 3:: Patient will asc/desc 8 recip with no HR Goal Time Frame: 4-6 Weeks Goal Progress: Progressing Goal 4:: Patient will report 80% improvement Goal Time Frame: 4-6 Weeks Goal Progress: Progressing Anticipated Interventions Patient/Client Instruction: Educate patient on: Benefits of Fitness Program Therapeutic Exercise to Include: Strength training, Endurance training, Balance training, Coordination, Agility training, Body mechanics, Postural training, Flexibilty training, Gait and locomotor training, Neuromotor development, Dynamic Lumbar Stabilization, Scapular Strength/Stabilization TENS: Yes Cryotherapy (ice pack, ice massage): Yes Thermo therapy (hot pack): Yes Ultrasound (thermal/non thermal): No Please do not hesitate to contact me at [phone] by phone or if you have questions or concerns regarding this new plan of care! Sincerely, YUN PattersonT
--- NOTE | 2023-01-15 17:27 | HP.PTDCSUM ---
It has been my pleasure to treat PRESTON HALE referred by Dr. Colton Myers DO, with the diagnosis of Right THR 10/24/22 for a total of 19 visit(s). Discharge Date: Please see the following information for a summary of their discharge status. Subjective: Patient feels that she is 90% better- she can put her socks on occasionally. R hip Pain Intensity (Out of 10): 0 % Improvement: 90 Objective/Function: Posture: good throughout. Gait: no deviation noted SLS: 20 without loss of balance. HR/TR: able with UE A. Observation: able to touch the floor Palpation: not tender Strength: Core: fair, Hip: Flexion: 30 Extn: 40 lbs, Abd/Add: 4+/5, Knee: 5/5, Ankle: 5/5. Flex: HS: moderate Gastroc: moderate. Stairs: asc/desc 8 recip Goal 1:: Patient will be I with HEP and progression Goal Progress: Goal Met Goal 2:: Patient will ambulate >300 feet with a normalized gait pattern and no AD Goal Progress: Goal Met Goal 3:: Patient will asc/desc 8 recip with no HR Goal Progress: Goal Met Goal 4:: Patient will report 80% improvement Goal Progress: Goal Met Plan: 01/15/23: Discharge to I HEP. 12/14/22: Continue with POC 2x a week for an additional 4 weeks- continue to progress towards current goals. Right THR 10/24/22- focus on LE and core strength/stabilization and functional mobility If there are questions or concerns regarding this patient's physical therapy, please feel free to call me at [phone]. Thank you for the referral of this patient. Sincerely, Laura Santiago, DPT Balance/Gait/Functional tests - Balance/Special Test Scores Lower Extremity Functional Score: 4 Tug Test: <10 sec.=free mobile WOMAC Total Score: 30 WOMAC Percentage: 68.7500
== END 2023-01-15 19:00 | disposition home or self-care (01) ==
LOC: PT 17:00
PROVIDERS: PCP Nurse Practitioner; Referring Provider Orthopaedic Surgery; Visit Provider Orthopaedic Surgery
DX: M16.11 Unilateral primary osteoarthritis, right hip (principal)
CPT/HCPCS: 97110; 97161; 97164

== ENCOUNTER → 2024-08-06 | Outpatient (CLI) | payer BC, SELFPAY ==
--- NOTE | 2024-08-06 16:03 | BD_ITS ---
STUDY: DUAL ENERGY X-RAY ABSORPTIOMETRY / DXA REASON FOR EXAM: Female, 59 years old. [id number] TECHNIQUE: Bone Mineral Density (BMD) measurements of lumbar spine and left forearm were obtained. COMPARISON: None. FINDINGS: Lumbar Spine (L1-L4): g/cm2 (1.196) / T-score (2.0) / Z-score (3.1) Findings are suggestive of normal bone density with a low fracture risk. Left Forearm: g/cm2 (0.628) / T-score (0.9) / Z-score (2.0) BD/Dexa Bone Density Study IMPRESSION: The patient is considered normal as outlined below according to World [place] Organization (WHO) criteria with a low fracture risk. Reference Information: The T-score is the number of standard deviations above or below the standard which is normal for young adults at their peak bone mineral density. The World Health Organization (WHO) interprets the T-scores as follows: Above -1 Normal bone density Between -1 and -2.5 Osteopenia Equal to / or below -2.5 Osteoporosis As a practical clinical guideline, osteopenia may be graded as follows: Mild -1 through -1.5 Moderate -1.6 through -2.0 Severe -2.1 through -2.4 The Z-score is the number of standard deviations above or below age-matched controls. A Z-score of less than -1.5 would be considered abnormal. References: 1. NIH Osteoporosis and Related Bone Diseases www osteo.org 2. International Society for Clinical Densitometry www iscd.org 3. National Osteoporosis Foundation www nof.org Electronically Signed: Reggie Spicer MD at 13:02 EST ,
== END | disposition home or self-care (01) ==
LOC: OPBD 15:56
PROVIDERS: PCP Nurse Practitioner Family; Referring Provider Nurse Practitioner Family; Visit Provider Nurse Practitioner Family
DX: Z78.0 Asymptomatic menopausal state (principal)
CPT/HCPCS: 77080